=== PATIENT | female | born 1935 | race Caucasian/White ===

== ENCOUNTER 2018-06-26 14:25 | Inpatient (IN) ==
[2018-06-26] MEDS ORDERED: 0.9 % Sodium Chloride 1,000 ML IVC ONE (15:59)
--- NOTE | 2018-06-26 16:03 | Emergency Department Note ---
Disposition Clinical Impression: ADRIENNE (acute kidney injury), Influenza A Failure to thrive Qualifiers: Failure to thrive age range: in adult Qualified Code(s): R62.7 - Adult failure to thrive Disposition: Admitted As Inpatient Condition: Fair Forms: ED Satisfaction Letter, Work/School Release Time of Disposition: 17:28 General Adult HPI - General Chief complaint: ED General Medical Stated complaint: FLu like symptoms Time Seen by Provider: 06/26/18 15:52 Source: patient Mode of arrival: ambulatory Limitations: no limitations Nursing Notes Reviewed: Yes Vital Signs Reviewed: Yes - History of Present Illness HPI Narrative: Patient is an 82-year-old female that presents emergency Department with reports of influenza A. Patient states that she has not been feeling well for appr oximately 4-5 days. Patient states that she has not been able to eat anything over this time. Patient states that she has had small amounts of oral fluid intake. Patient states that she just feels weak all over. Patient states she has had cough, congestion and shortness of breath. Patient also reports that she was having chest pain in her bilateral lower ribs. Patient states that is made worse when she coughs. Patient also reports that she is had a fever at home however she is not checked her temperature. Patient was seen by her primary care provider Dr. Marquez diagnosed with influenza and sent her here to the emergency department for IV fluids and further evaluation. Pain Scale: 7 - Related Data Home Medications Medication Instructions Recorded Confirmed ALPRAZolam [Xanax 0.5 MG Tablet] 0.5 mg PO HS #0 04/18/15 07/04/17 Donepezil [Aricept] 5 mg PO HS #0 04/18/15 07/04/17 Losartan/HCTZ [Hyzaar 50-12.5 1 tab PO DAILY 04/18/15 07/04/17 Tablet] Montelukast [Singulair] 10 mg PO DAILY #0 04/18/15 07/04/17 Omeprazole [PriLOSEC] 20 mg PO BID #0 04/18/15 07/04/17 Acetaminophen [Tylenol] 325 mg PO Q6HR PRN 11/30/15 07/04/17 Cholecalciferol (D-3) [Vitamin D] 2,000 unit PO DAILY 07/04/17 07/04/17 Previous Rx's Medication Instructions Recorded Albuterol Sulfate [Albuterol 1 puff IH Q4HR PRN #1 hfa.aer.ad 11/08/15 Inhaler] Ibuprofen [Motrin] 600 mg PO Q6HR PRN #60 tab 07/04/17 Allergies Allergy/AdvReac Type Severity Reaction Status Date / Time TAVO Inhibitors Allergy Itching Verified 07/04/17 09:42 Penicillins Allergy Itching Verified 07/04/17 09:42 sulfamethoxazole Allergy Hives Verified 06/28/17 15:49 [From Bactrim] trimethoprim [From Bactrim] Allergy Hives Verified 06/28/17 15:49 All systems ED: reviewed and negative except as stated. Constitutional: Reports: fever, weakness Cardiovascular: Reports: chest pain Respiratory: Reports: cough, dyspnea. Denies: sputum production Gastrointestinal: Reports: nausea. 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 Absent: respiratory distress, wheezes - Cardiovascular Cardiovascular exam: Present: regular rate, normal rhythm, normal heart sounds, +S1, +S2 - Abdominal Exam Abdominal exam: Present: soft, Non-Tender, normal bowel sounds - Neurological Exam Neurological exam: Present: alert, oriented X3 - Psychiatric Psychiatric exam: Present: normal affect, normal mood - Skin Skin exam: Present: warm, dry, intact Course Vital Signs Temperature 97.4 F L 06/26/18 14:36 Pulse Rate 87 06/26/18 14:36 Respiratory Rate 20 06/26/18 14:36 Blood Pressure 94/65 06/26/18 14:36 O2 Sat by Pulse Oximetry 93 06/26/18 14:36 Temperature 97.4 F L 06/26/18 15:46 Pulse Rate 71 06/26/18 17:12 Respiratory Rate 20 06/26/18 17:12 Blood Pressure 126/80 06/26/18 17:12 O2 Sat by Pulse Oximetry 95 06/26/18 17:12 Oxygen Delivery Oxygen Delivery Room Air Medical Decision Making - MDM Narrative Medical decision making narrative: Due the patient presenting to the emergency department with reports of influenza as well as chest pain and shortness of breath we will obtain basic laboratory testing as well as chest x-ray and EKG. Patient will also receive IV fluids. Due to the patient having positive influenza a at outside facility and having acute kidney injury here in the emergency department and not tolerating by mouth intake we will admit the patient for further evaluation and management. The patient's creatinine was 1.54 which is elevated from the patient's baseline. The patient has a low white blood cell count of 4.2. Otherwise remainder of her laboratory testing is relatively unremarkable. Patient was given IV fluids. I called and spoke with the and admitting hospitalist - Medical Records Medical records reviewed: Yes I reviewed the patient's medical records. - Lab Data Lab results reviewed: Yes I reviewed the patient's lab results. Result diagrams: 06/26/18 16:05 06/26/18 16:05 Lab Results 06/26/18 06/26/18 Range/Units 16:05 16:05 WBC 4.2 L (4.3-11.1) K/mcL RBC 4.84 (3.82-4.97) M/mcL Hgb 15.6 H (11.5-15.4) g/dL Hct 46.5 H (35.3-44.9) % MCV 96.1 (83.0-100.0) fL MCH 32.2 (28.0-33.3) pg MCHC 33.5 (31.6-35.5) g/dL RDW 13.3 (11.5-14.5) % Plt Count 195 (140-400) K/mcL MPV 9.7 (9.4-12.4) fL Immature Gran % 0.2 (0-4) % Seg Neutrophils % 60.7 % Lymphocytes % 20.6 % Monocytes % 17.3 % Eosinophils % 0.5 % Basophils % 0.7 % Neutrophils # 2.6 (1.6-8.9) K/mcL Lymphocytes # 0.9 (0.6-4.6) K/mcL Monocytes # 0.7 (0.0-1.3) K/mcL Eosinophils # 0.0 (0.0-0.6) K/mcL Basophils # 0.0 (0.0-0.2) K/mcL Sodium 135 L (136-145) mEq/L Potassium 4.1 (3.5-5.1) mEq/L Chloride 101 (98-107) mEq/L Carbon Dioxide 18 L (23-29) mEq/L BUN 29 H (8-23) mg/dL Creatinine 1.54 H (0.60-1.20) mg/dL Est GFR ( Amer) 39 L (> 60) Est GFR (Non-Af Amer) 32 L (> 60) BUN/Creatinine Ratio 19 (6-26) Glucose 86 (70-105) mg/dL Calculated Osmolality 285 (280-300) Calcium 9.5 (8.6-10.3) mg/dL Troponin I < 0.03 (< 0.04) ng/mL - Radiology Data Radiology results reviewed: Yes I reviewed the patient's radiology results. Chest X-Ray 06/26/18 15:56 IMPRESSION: No acute cardiopulmonary disease. D/ / Betty Hopper MD / Betty Hopper MD Interpreting Provider: Betty Hopper MD - EKG Data EKG #1 EKG attestation: Yes I reviewed and interpreted this EKG. EKG results narrative: EKG shows a sinus rhythm at a rate of 72 beats minute, OH interval 154, QRS duration of 87, QTc of 447. There is evidence of T-wave inversion on aVL. As well as T-wave flattening in V2. This is compared to previous EKG on 01/30/17.
--- NOTE | 2018-06-26 16:09 | Emergency Department Note ---
Disposition Clinical Impression: Failure to thrive Qualifiers: Failure to thrive age range: in adult Qualified Code(s): R62.7 - Adult failure to thrive Disposition: Still a Patient Forms: ED Satisfaction Letter, Work/School Release General Adult HPI - General Chief complaint: ED General Medical Stated complaint: FLu like symptoms Time Seen by Provider: 06/26/18 15:52 Source: patient Mode of arrival: ambulatory Limitations: no limitations Nursing Notes Reviewed: Yes Vital Signs Reviewed: Yes - History of Present Illness HPI Narrative: ED ATTESTATION NOTE: I examined this patient and my medical decision-making was reviewed with the Resident Physician/SALVAGER/PA/Student. I have personally performed a face to face evaluation on this patient & I agree with the documented findings, disposition and treatment plan as described except to the extent set forth below. Patient was seen with emergency medicine resident Dr. David Petty please see copy of his note for details of this encounter Briefly: A 52-year-old female diagnosed with influenza today for 5 days of symptoms not eating or drinking referred by her primary care provider to the further evaluation patient appears ill but nontoxic mucosa patient get IV rehydration screening labs and chest x-ray including EKG. Admission anticipated. Disposition pending. Pain Scale: 7 - Related Data Home Medications Medication Instructions Recorded Confirmed ALPRAZolam [Xanax 0.5 MG Tablet] 0.5 mg PO HS #0 04/18/15 07/04/17 Donepezil [Aricept] 5 mg PO HS #0 04/18/15 07/04/17 Losartan/HCTZ [Hyzaar 50-12.5 1 tab PO DAILY 04/18/15 07/04/17 Tablet] Montelukast [Singulair] 10 mg PO DAILY #0 04/18/15 07/04/17 Omeprazole [PriLOSEC] 20 mg PO BID #0 04/18/15 07/04/17 Acetaminophen [Tylenol] 325 mg PO Q6HR PRN 11/30/15 07/04/17 Cholecalciferol (D-3) [Vitamin D] 2,000 unit PO DAILY 07/04/17 07/04/17 Previous Rx's Medication Instructions Recorded Albuterol Sulfate [Albuterol 1 puff IH Q4HR PRN #1 hfa.aer.ad 11/08/15 Inhaler] Ibuprofen [Motrin] 600 mg PO Q6HR PRN #60 tab 07/04/17 Allergies Allergy/AdvReac Type Severity Reaction Status Date / Time TAVO Inhibitors Allergy Itching Verified 07/04/17 09:42 Penicillins Allergy Itching Verified 07/04/17 09:42 sulfamethoxazole Allergy Hives Verified 06/28/17 15:49 [From Bactrim] trimethoprim [From Bactrim] Allergy Hives Verified 06/28/17 15:49 Constitutional: Reports: fever, weakness Cardiovascular: Reports: chest pain Respiratory: Reports: cough, dyspnea. Denies: sputum production Gastrointestinal: Reports: nausea. 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 - Social History Smoking Status: Never smoker Smokeless Tobacco Status: No Alcohol use: Reports: none Drug use: Reports: none Physical Exam - General Limitations: no limitations General appearance: alert, in no apparent distress Course Vital Signs Temperature 97.4 F L 06/26/18 14:36 Pulse Rate 87 06/26/18 14:36 Respiratory Rate 20 06/26/18 14:36 Blood Pressure 94/65 06/26/18 14:36 O2 Sat by Pulse Oximetry 93 06/26/18 14:36 Temperature 97.4 F L 06/26/18 15:46 Pulse Rate 73 06/26/18 15:51 Respiratory Rate 20 06/26/18 15:51 Blood Pressure 163/83 06/26/18 15:51 O2 Sat by Pulse Oximetry 96 06/26/18 15:51 Oxygen Delivery Oxygen Delivery Room Air
[2018-06-26 16:20] LABS: Basophils % 0.7 %; Eosinophils % 0.5 %; Hematocrit 46.5 % (35.3-44.9); Hemoglobin 15.6 g/dL (11.5-15.4); Immature Granulocytes % 0.2 % (0-4); Lymphocytes # 0.9 K/mcL (0.6-4.6); Lymphocytes % 20.6 %; Mean Corpuscular HGB Conc 33.5 g/dL (31.6-35.5); Mean Corpuscular Hemoglobin 32.2 pg (28.0-33.3); Mean Corpuscular Volume 96.1 fL (83.0-100.0); Mean Platelet Volume 9.7 fL (9.4-12.4); Monocytes # 0.7 K/mcL (0.0-1.3); Monocytes % 17.3 %; Neutrophils # 2.6 K/mcL (1.6-8.9); Platelet Count 195 K/mcL (140-400); Red Blood Count 4.84 M/mcL (3.82-4.97); Red Cell Distribution Width 13.3 % (11.5-14.5); Segmented Neutrophils % 60.7 %
[2018-06-26 16:54] LABS: BUN/Creatinine Ratio 19 (6-26); Blood Urea Nitrogen 29 mg/dL (8-23); Calcium 9.5 mg/dL (8.6-10.3); Carbon Dioxide 18 mEq/L (23-29); Chloride 101 mEq/L (98-107); Glucose 86 mg/dL (70-105); Osmolality,Calculated 285 (280-300); Potassium 4.1 mEq/L (3.5-5.1); Sodium 135 mEq/L (136-145); Troponin I < 0.03 ng/mL (< 0.04); eGFR For Non-African Americans 32 (> 60)
[2018-06-26] MEDS ORDERED: Ondansetron 4 MG/2 ML VIAL IVP PRN (18:26)
--- NOTE | 2018-06-26 18:34 | Internal Med History&Physical ---
Date of Encounter: 06/26/18 Time of Encounter: 18:10 Internal Medicine - H&P: HPI Admitted From: Home Plans for Post Hospital Care: Home History of present illness: Ms. Demarco is a 82 year old female with a possible medical history of hypertension, asthma who has had body aches, cough, upper retrosternal chest pain with cough and breathing, lightheadedness, occasional diarrhea for the last 4 days. She went to her doctor's office and had no swab which diagnosed her with influenza A. She was sent by her doctor here for IV hydration since she was not eating and drinking well at home. In the ER her labs were consistent with acute renal injury and some dehydration. Since she got some fluids she is feeling a little better. The chest x-ray did not show pneumonia. She has occasional phlegm. She is a nonsmoker. Past Med Surg Social Fam HX - Past Medical History Medical history: COPD, dementia, hyperlipidemia, hypertension, kidney stones Additional medical history: DDD. cervical ca Psychiatric history: anxiety, depression - Past Surgical History Surgical History: other Additional surgical history: Bladder tuck. Left Ankle. Right Nephrostomy- placed and removed - Social History Smoking Status: Never smoker Smokeless Tobacco Status: No Alcohol use: none Drug use: none - Family History Mother Family Member Ethnicity: Non- Living Status: Hx Family Cardiac Disorders: Yes Hx Family Respiratory Disorders: No Hx Family Cancer: No Hx Family GI Disorders: No Hx Family Endocrine Disorder: Yes (dm) Hx Family Neuromuscular Disorders: No Hx Family Neurologic Disorders: No Hx Family HEENT Disorders: No Hx Family Autoimmune Disorders: No Brother Hx Family Cardiac Disorders: Yes Internal Medicine - H&P: Meds Donepezil [Aricept] 5 mg PO HS #0 04/18/15 [History] Omeprazole [PriLOSEC] 20 mg PO DAILY #0 04/18/15 [History] Albuterol Sulfate [Albuterol Inhaler] 1 puff IH Q4HR PRN #1 hfa.aer.ad 11/08/15 [Rx] Acetaminophen [Tylenol] 500 mg PO Q6HR PRN 06/26/18 [History] Ergocalciferol (VITAMIN D2) [Vitamin D2] 50,000 unit PO QWEEK 06/26/18 [History] Escitalopram [Lexapro] 10 mg PO DAILY 06/26/18 [History] Gabapentin [Neurontin] 300 mg PO HS 06/26/18 [History] Lisinopril [Zestril] 5 mg PO DAILY 06/26/18 [History] Oxybutynin Chloride [Ditropan Xl] 5 mg PO DAILY 06/26/18 [History] Quetiapine Fumarate [SEROquel] 25 mg PO HS 06/26/18 [History] clonazePAM [Clonazepam] 0.5 mg PO DAILY 06/26/18 [History] Allergy/AdvReac Type Severity Reaction Status Date / Time TAVO Inhibitors Allergy Itching Verified 07/04/17 09:42 Penicillins Allergy Itching Verified 07/04/17 09:42 sulfamethoxazole Allergy Hives Verified 06/28/17 15:49 [From Bactrim] trimethoprim [From Bactrim] Allergy Hives Verified 06/28/17 15:49 All Systems PM: A 10-system review of systems was performed and is negative for pertinent findings except as documented above in the HPI. - Constitutional Vitals: Temp Pulse Resp BP Pulse Ox 97.4 F L 71 20 126/80 95 06/26/18 15:46 06/26/18 17:12 06/26/18 17:12 06/26/18 17:12 06/26/18 17:12 General appearance: Present: mild distress, A&O X 3, answers questions appropriately Exam: Lying in bed. - Head Head exam: Present: atraumatic, normocephalic - Eye Eye exam: Present: PERRL, conjuntiva pink, sclera anicteric Pupils: Present: PERRL - Neck Neck exam general surgery: Present: supple, trachea midline - Respiratory Respiratory exam: Present: wheezes. Absent: accessory muscle use, rales, rhonchi - Cardiovascular Cardiovascular exam: Present: RRR, +S1, +S2. Absent: diastolic murmur, gallop, rubs, systolic murmur - GI/Abdominal GI/Abdominal exam: Present: normal bowel sounds, soft, no peritoneal signs. Absent: distended, tenderness - Extremities Exam Extremities exam: Present: warm, radial pulses palpable and symmetrical. Absent: cyanotic, pedal edema - Neurological Exam Neurological exam: Present: CN II-XII intact, oriented X3, no focal deficits. Absent: pronater drift, facial droop, speech deficit - Psychiatric Psychiatric exam: Present: normal mood - Skin Skin exam: Present: dry, intact Internal Med - H&P Results - Labs CBC & Chem 7: 06/26/18 16:05 06/26/18 16:05 Labs: Short CBC 06/26/18 Range/Units 16:05 WBC 4.2 L (4.3-11.1) K/mcL Hgb 15.6 H (11.5-15.4) g/dL Hct 46.5 H (35.3-44.9) % Plt Count 195 (140-400) K/mcL Neutrophils # 2.6 (1.6-8.9) K/mcL BMP 06/26/18 16:05 Sodium 135 L Potassium 4.1 Chloride 101 Carbon Dioxide 18 L BUN 29 H Creatinine 1.54 H Glucose 86 Calcium 9.5 Cardiac Enzymes 06/26/18 Range/Units 16:05 Troponin I < 0.03 (< 0.04) ng/mL - Impressions ITS Impressions Chest X-Ray 06/26/18 15:56 IMPRESSION: No acute cardiopulmonary disease. D/ / Betty Hopper MD / Betty Hopper MD Interpreting Provider: Betty Hopper MD - Assessment and Plan (1) Influenza A Current Visit: Yes Status: Acute Assessment and plan: The patient is post the window for starting Tamiflu. Will hydrate patient. Will institute Zofran when necessary for nausea. We will give supportive care with cough syrup and acetaminophen. (2) ADRIENNE (acute kidney injury) Current Visit: Yes Status: Acute Assessment and plan: Will hydrate gently. Will follow renal function by labs. Hold lisinopril at this time. (3) HTN (hypertension) Current Visit: No Status: Chronic Assessment and plan: Will monitor blood pressure. Lisinopril is held kidney function improves. (4) Asthma Current Visit: Yes Status: Acute Assessment and plan: Will give neb treatments with albuterol. Oxygen if needed. Qualifiers: Asthma severity: moderate Qualified Code(s): J45.909 - Unspecified asthma, uncomplicated - Time Spent With Patient Total time spent is greater than 50% in coordination of care (as documented) at patient's floor/unit and/or counseling patient: 25 - 35 minutes
[2018-06-26] MEDS: 0.9 % Sodium Chloride 1,000 ML IVC SCH (18:53)
[2018-06-26] MEDS ORDERED: Albuterol 2.5 MG/3 ML NEBULIZER ONE (18:56)
[2018-06-26] MEDS: Albuterol 2.5 MG/3 ML NEBULIZER IH SCH ×2 (18:56→22:43)
[2018-06-26] MEDS: Gabapentin 300 MG CAPSULE PO SCH (21:42)
[2018-06-27 03:26] LABS: Basophils % 0.4 %; Eosinophils % 0.8 %; Hematocrit 40.5 % (35.3-44.9); Lymphocytes # 0.8 K/mcL (0.6-4.6); Lymphocytes % 29.2 %; Mean Corpuscular HGB Conc 34.1 g/dL (31.6-35.5); Mean Corpuscular Hemoglobin 32.7 pg (28.0-33.3); Mean Platelet Volume 9.5 fL (9.4-12.4); Monocytes # 0.5 K/mcL (0.0-1.3); Monocytes % 20.5 %; Neutrophils # 1.3 K/mcL (1.6-8.9); Platelet Count 165 K/mcL (140-400); Red Blood Count 4.22 M/mcL (3.82-4.97); Red Cell Distribution Width 13.3 % (11.5-14.5); Segmented Neutrophils % 49.1 %
[2018-06-27 03:39] LABS: Hemoglobin 13.8 g/dL (11.5-15.4)
[2018-06-27 03:43] LABS: Calcium 8.5 mg/dL (8.6-10.3); Potassium 3.3 mEq/L (3.5-5.1)
[2018-06-27] MEDS: Albuterol 2.5 MG/3 ML NEBULIZER IH SCH ×4 (04:17→22:41)
[2018-06-27 05:23] LABS: Platelet Estimate Slight Decrease (Normal)
[2018-06-27] MEDS: Cholecalciferol (D-3) 1,000 UNIT TABLET PO SCH (08:18)
[2018-06-27] MEDS: clonazePAM 0.5 MG TABLET PO SCH (08:18)
[2018-06-27] MEDS: 0.9 % Sodium Chloride 1,000 ML IVC SCH ×2 (09:23→22:12)
--- NOTE | 2018-06-27 10:14 | Internal Med Progress Note ---
<StokesAmira - Last Filed: 06/27/18 10:09> Hospitalist Progress Note - Encounter Date of Encounter: 06/27/18 Time of Encounter: 08:40 - Subjective Interval History: Ms. Demarco is a 82 y/o female with a past medical history of hypertension, asthma who has had body aches, cough, upper retrosternal chest pain with cough and breathing, lightheadedness, occasional diarrhea for the last 4 days and was admitted to the ED for ADRIENNE 2/2 to dehydration from influenza A. Today, patient states that she has a headache this morning. She normally takes Tylenol which helps it. She is not feeling nauseous but is not hungry. She is currently only eating ice. She is still coughing and it is hard bring up the mucous. - Exam Vitals: Temp Pulse Resp BP Pulse Ox 98.5 F 100 17 104/69 98 06/27/18 07:49 06/27/18 07:49 06/27/18 09:41 06/27/18 07:49 06/27/18 09:41 Exam: Constitutional: Alert, in no acute distress Head: Normocephalic, atraumatic Heart: Normal, regular rate and rhythm, no murmurs Lungs: 1:2 prolonged expiratory phase, wheezing, on RA without acute resp distress Abdomen: Soft, nondistended, nontender, no guarding or rigidity. Extremities: No edema, No clubbing, radial pulse +2/4, capillary refill <2sec. Skin: Skin warm and dry, no lesions, no rashes, no jaundice Neurologic: Cranial nerves II through XII grossly intact, Psych: Cooperative with exam, cognitive function intact, speech clear, - Assessment and Plan (1) ADRIENNE (acute kidney injury) Current Visit: Yes Status: Acute Assessment and Plan: ADRIENNE resolved. Patient is still not eating or drinking currently therefore will continue fluids. Plan: - NS 75ml/hr - continue to hold lisinpril - avoid nephrotoxic agents - diet: regular - dispo: most likely tomorrow if patient is able to maintain fluid hydraiton. (2) Influenza A Current Visit: Yes Status: Acute Assessment and Plan: Patient was not diagnosed until 4 days after symptoms. Does not qualify for Tamiflu. Currently on RA but wheezing present. Will obtain Resp panel. Currently not on antibiotics as only found source so far is influenza. Leukopenia likely 2/2 to influenza. CXR did not show pneumonia. Plan: - resp panel pending - no tamiflu needed - Mucinex DM - continue supportive care (3) HTN (hypertension) Current Visit: No Status: Chronic Assessment and Plan: Well controlled currently. Holding Lisinopril for ADRIENNE. ADRIENNE resolved. Continue to hold as blood pressure well controlled. (4) Asthma Current Visit: Yes Status: Acute Assessment and Plan: Albuterol Q6H nati. (5) Hypokalemia Current Visit: Yes Status: Acute Assessment and Plan: K= 3.3, likely due to albuterol treatments. Will replace with KCl 40meq once recheck in the AM. (6) Dehydration Current Visit: Yes Status: Acute Assessment and Plan: See plan above. Patient is only eating ice chips currently. Will continue fluids. DVT Prophylaxis: IPCDs - Time Spent with Patient Total time spent is greater than 50% in coordination of care (as documented) at patient's floor/unit and/or counseling patient: Internal Medicine: Result - Labs CBC & Chem 7: 06/27/18 02:37 06/27/18 02:37 Labs: Short CBC 06/26/18 06/27/18 Range/Units 16:05 02:37 WBC 4.2 L 2.6 L (4.3-11.1) K/mcL Hgb 15.6 H 13.8 D (11.5-15.4) g/dL Hct 46.5 H 40.5 (35.3-44.9) % Plt Count 195 165 (140-400) K/mcL Neutrophils # 2.6 1.3 L (1.6-8.9) K/mcL BMP 06/26/18 06/27/18 16:05 02:37 Sodium 135 L 138 Potassium 4.1 3.3 L Chloride 101 106 Carbon Dioxide 18 L 19 L BUN 29 H 24 H Creatinine 1.54 H 1.15 Glucose 86 77 Calcium 9.5 8.5 L Cardiac Enzymes 06/26/18 Range/Units 16:05 Troponin I < 0.03 (< 0.04) ng/mL - Impressions Impressions Chest X-Ray 06/26/18 15:56 IMPRESSION: No acute cardiopulmonary disease. D/ / Betty Hopper MD / Betty Hopper MD Interpreting Provider: Betty Hopper MD Consult Discharge Plan - Plan Referrals: Tyler Mraquez MD [Primary Care Provider] - <Shiv Bolden - Last Filed: 06/27/18 11:00> Hospitalist Progress Note - Encounter Date of Encounter: 06/27/18 - Exam Vitals: Temp Pulse Resp BP Pulse Ox 98.5 F 100 17 104/69 98 06/27/18 07:49 06/27/18 07:49 06/27/18 09:41 06/27/18 07:49 06/27/18 09:41 - Assessment and Plan (1) ADRIENNE (acute kidney injury) Current Visit: Yes Status: Acute (2) HTN (hypertension) Current Visit: No Status: Chronic (3) Influenza A Current Visit: Yes Status: Acute (4) Asthma Current Visit: Yes Status: Acute (5) Hypokalemia Current Visit: Yes Status: Acute (6) Dehydration Current Visit: Yes Status: Acute - Time Spent with Patient Total time spent is greater than 50% in coordination of care (as documented) at patient's floor/unit and/or counseling patient: Internal Medicine: Result - Labs CBC & Chem 7: 06/27/18 02:37 06/27/18 02:37 Labs: Short CBC 06/26/18 06/27/18 Range/Units 16:05 02:37 WBC 4.2 L 2.6 L (4.3-11.1) K/mcL Hgb 15.6 H 13.8 D (11.5-15.4) g/dL Hct 46.5 H 40.5 (35.3-44.9) % Plt Count 195 165 (140-400) K/mcL Neutrophils # 2.6 1.3 L (1.6-8.9) K/mcL BMP 06/26/18 06/27/18 16:05 02:37 Sodium 135 L 138 Potassium 4.1 3.3 L Chloride 101 106 Carbon Dioxide 18 L 19 L BUN 29 H 24 H Creatinine 1.54 H 1.15 Glucose 86 77 Calcium 9.5 8.5 L Cardiac Enzymes 06/26/18 Range/Units 16:05 Troponin I < 0.03 (< 0.04) ng/mL - Impressions Impressions Chest X-Ray 06/26/18 15:56 IMPRESSION: No acute cardiopulmonary disease. D/ / Betty Hopper MD / Betty Hopper MD Interpreting Provider: Betty Hopper MD - Attending Attestation I examined this patient and my medical decision-making was reviewed with the Resident Physician Dr. Stokes. I agree with the documented findings, disposition and treatment plan as described except to the extent set forth below. Ms. Demarco is a 82 year old female with a known past medical history of hypertension, COPD, hyperlipidemia and renal calculi pt presented to ER with flu like symptoms, generalized body aches, cough with expectoration. Her influenza A came back positive. She denied any CP. Pt still feels weak and lethargic and PO intake is not better. Gen: A, A, O x 3 Chest: Diminished BS b/l , no crackles, No rales Heart; S1S2+ RRR a/p 1. Acute influenza A positive inf 2. Acute purulent bronchitis 3. ADRIENNE due to dehydration Since her symptoms are mote than 4 days, no need of Tamiflu continue symptomatic and supportive care IV hydration since she does have purulent bronchitis will start her on prophylactic antibiotic levofloxacin ___ <Amira Stokes - Last Filed: 06/27/18 10:09> (3) HTN (hypertension) Qualifiers: Hypertension type: essential hypertension Qualified Code(s): I10 - Essential (primary) hypertension (4) Asthma Qualifiers: Asthma severity: moderate Qualified Code(s): J45.909 - Unspecified asthma, uncomplicated <Shiv Bolden - Last Filed: 06/27/18 11:00> (2) HTN (hypertension) Qualifiers: Hypertension type: essential hypertension Qualified Code(s): I10 - Essential (primary) hypertension (4) Asthma Qualifiers: Asthma severity: moderate Qualified Code(s): J45.909 - Unspecified asthma, uncomplicated
[2018-06-27] MEDS: levoFLOXacin 750 MG TABLET PO SCH (11:41)
[2018-06-27 12:53] LABS: Adenovirus Not Detected (Not Detect); Bordetella Pertussis Not Detected (Not Detect); Chlamydophila pneumoniae Not Detected (Not Detect); Coronavirus 229E Not Detected (Not Detect); Coronavirus HKU1 Not Detected (Not Detect); Coronavirus NL63 Not Detected (Not Detect); Coronavirus OC43 Not Detected (Not Detect); Human Metapneumovirus Not Detected (Not Detect); Human Rhinovirus/Enterovirus Not Detected (Not Detect); Influenza A Subtype 2009 H1 Not Detected (Not Detect); Influenza A Untypeable Not Detected (Not Detect); Influenza B Not Detected (Not Detect); Mycoplasma pneumoniae Not Detected (Not Detect); Parainfluenza Virus 1 Not Detected (Not Detect); Parainfluenza Virus 2 Not Detected (Not Detect); Parainfluenza Virus 3 Not Detected (Not Detect); Parainfluenza Virus 4 Not Detected (Not Detect); Respiratory Syncytial Virus Not Detected (Not Detect)
[2018-06-27] MEDS: Gabapentin 300 MG CAPSULE PO SCH (21:07)
[2018-06-28] MEDS: Albuterol 2.5 MG/3 ML NEBULIZER IH SCH ×4 (03:58→22:21)
[2018-06-28 06:57] LABS: Mean Corpuscular Volume 99.5 fL (83.0-100.0)
[2018-06-28 06:58] LABS: Hematocrit 39.6 % (35.3-44.9); Hemoglobin 12.9 g/dL (11.5-15.4); Mean Corpuscular HGB Conc 32.6 g/dL (31.6-35.5); Mean Corpuscular Hemoglobin 32.4 pg (28.0-33.3); Mean Platelet Volume 9.3 fL (9.4-12.4); Platelet Count 147 K/mcL (140-400); Red Blood Count 3.98 M/mcL (3.82-4.97); Red Cell Distribution Width 13.5 % (11.5-14.5)
[2018-06-28 07:22] LABS: BUN/Creatinine Ratio 16 (6-26); Blood Urea Nitrogen 15 mg/dL (8-23); Calcium 8.4 mg/dL (8.6-10.3); Carbon Dioxide 19 mEq/L (23-29); Chloride 111 mEq/L (98-107); Glucose 77 mg/dL (70-105); Magnesium 1.6 mg/dL (1.6-2.6); Osmolality,Calculated 286 (280-300); Potassium 3.8 mEq/L (3.5-5.1); Sodium 138 mEq/L (136-145); eGFR For Non-African Americans 56 (> 60)
[2018-06-28] MEDS: clonazePAM 0.5 MG TABLET PO SCH (09:00)
[2018-06-28] MEDS: Cholecalciferol (D-3) 1,000 UNIT TABLET PO SCH (09:00)
[2018-06-28] MEDS: levoFLOXacin 750 MG TABLET PO SCH (09:00)
--- NOTE | 2018-06-28 11:25 | Internal Med Progress Note ---
Hospitalist Progress Note - Encounter Date of Encounter: 06/28/18 Time of Encounter: 09:26 - Subjective Interval History: Patient seen and examined this morning at bedside. No overnight acute events. Appears significantly short of breath with minimal exertion. She did have some improvement in her breathing compared to when she came in. Denies any chest pain. Has cough. Denies any abdominal pain, bowel or bladder complaints. Afebrile overnight. - Exam Vitals: Temp Pulse Resp BP Pulse Ox 97.6 F 82 18 112/68 95 06/28/18 11:17 06/28/18 11:17 06/28/18 11:17 06/28/18 11:17 06/28/18 11:17 Exam: General: In mild respiratory distress. Respiratory exam: Diffuse b/l wheezing, mild accessory muscle use Cardiovascular exam: RRR, +S1, +S2. no murmur, gallop, rubs. GI/Abdominal exam: Non-tender, Non-distended, normal bowel sounds, soft, no peritoneal signs. Extremities exam: full ROM, no pedal edema, no calf tenderness Neurological exam: CN II-XII intact, AO X3, no focal deficits. Skin exam: No skin rash - Assessment and Plan (1) ADRIENNE (acute kidney injury) Current Visit: Yes Status: Acute (2) HTN (hypertension) Current Visit: No Status: Chronic (3) Influenza A Current Visit: Yes Status: Acute (4) Asthma Current Visit: Yes Status: Acute (5) Hypokalemia Current Visit: Yes Status: Acute (6) Dehydration Current Visit: Yes Status: Acute - Summary of Assessment and Plan Summary of Assessment and Plan: Influenza A - Patient with high risk being elderly and history of asthma. Still with significant shortness of breath. Will start tamiflu - Will also start steroid course given h/o asthma and wheezing on clinical exam. - c/w levaquin started for bronchitis. ADRIENNE - resolved. Will mild hyperchloremia. Will stop IVF - continue to hold lisinopril HTN - Lisinopril on hold - Monitor BP for now Hypokalemia - resolved - monitor for now Dvt ppx - EPCD - Time Spent with Patient Total time spent is greater than 50% in coordination of care (as documented) at patient's floor/unit and/or counseling patient: Internal Medicine: Result - Labs CBC & Chem 7: 06/28/18 05:44 06/28/18 05:44 Labs: Short CBC 06/28/18 Range/Units 05:44 WBC 1.9 L (4.3-11.1) K/mcL Hgb 12.9 (11.5-15.4) g/dL Hct 39.6 (35.3-44.9) % Plt Count 147 (140-400) K/mcL BMP 06/28/18 05:44 Sodium 138 Potassium 3.8 Chloride 111 H Carbon Dioxide 19 L BUN 15 Creatinine 0.96 Glucose 77 Calcium 8.4 L Consult Discharge Plan - Plan Referrals: Tyler Marquez MD [Primary Care Provider] - (2) HTN (hypertension) Qualifiers: Hypertension type: essential hypertension Qualified Code(s): I10 - Essential (primary) hypertension (4) Asthma Qualifiers: Asthma severity: moderate
[2018-06-28] MEDS: MethylPREDNISolone 40 MG/ML VIAL IVP SCH (14:18)
[2018-06-28] MEDS: Gabapentin 300 MG CAPSULE PO SCH (21:08)
[2018-06-29 03:46] LABS: Red Cell Distribution Width 13.6 % (11.5-14.5)
[2018-06-29 03:47] LABS: Hematocrit 39.8 % (35.3-44.9); Hemoglobin 13.3 g/dL (11.5-15.4); Mean Corpuscular HGB Conc 33.4 g/dL (31.6-35.5); Mean Corpuscular Hemoglobin 32.4 pg (28.0-33.3); Mean Corpuscular Volume 97.1 fL (83.0-100.0); Mean Platelet Volume 9.7 fL (9.4-12.4); Monocytes # 0.1 K/mcL (0.0-1.3); Platelet Count 171 K/mcL (140-400)
[2018-06-29 03:57] LABS: BUN/Creatinine Ratio 13 (6-26); Blood Urea Nitrogen 13 mg/dL (8-23); Calcium 9.3 mg/dL (8.6-10.3); Carbon Dioxide 22 mEq/L (23-29); Chloride 108 mEq/L (98-107); Glucose 141 mg/dL (70-105); Osmolality,Calculated 288 (280-300); Potassium 4.1 mEq/L (3.5-5.1); Sodium 138 mEq/L (136-145); eGFR For Non-African Americans 54 (> 60)
[2018-06-29] MEDS: Albuterol 2.5 MG/3 ML NEBULIZER IH SCH ×4 (04:22→21:36)
[2018-06-29 04:47] LABS: Lymphocytes # 0.3 K/mcL (0.6-4.6); Neutrophils # 1.4 K/mcL (1.6-8.9); Platelet Estimate Normal (Normal)
[2018-06-29] MEDS: Cholecalciferol (D-3) 1,000 UNIT TABLET PO SCH (08:59)
[2018-06-29] MEDS: clonazePAM 0.5 MG TABLET PO SCH (08:59)
[2018-06-29] MEDS: levoFLOXacin 750 MG TABLET PO SCH (08:59)
[2018-06-29] MEDS: MethylPREDNISolone 40 MG/ML VIAL IVP SCH (08:59)
--- NOTE | 2018-06-29 11:27 | Internal Med Progress Note ---
Hospitalist Progress Note - Encounter Date of Encounter: 06/29/18 Time of Encounter: 11:24 - Subjective Interval History: Patient seen and examined this morning at bedside. No acute overnight events. Still significantly short of breath at rest. Denies any chest pain. In good spirits. - Exam Vitals: Temp Pulse Resp BP Pulse Ox 97.3 F L 75 18 110/67 93 06/29/18 10:00 06/29/18 10:00 06/29/18 10:40 06/29/18 10:00 06/29/18 10:40 Exam: General: In mild respiratory distress. Respiratory exam: Diffuse b/l wheezing, mild accessory muscle use Cardiovascular exam: RRR, +S1, +S2. no murmur, gallop, rubs. GI/Abdominal exam: Non-tender, Non-distended, no peritoneal signs. Extremities exam: full ROM, no pedal edema, no calf tenderness Neurological exam: CN II-XII intact, AO X3, no focal deficits. Skin exam: No skin rash - Assessment and Plan (1) ADRIENNE (acute kidney injury) Current Visit: Yes Status: Acute (2) HTN (hypertension) Current Visit: No Status: Chronic (3) Influenza A Current Visit: Yes Status: Acute (4) Asthma Current Visit: Yes Status: Acute (5) Hypokalemia Current Visit: Yes Status: Acute (6) Dehydration Current Visit: Yes Status: Acute - Summary of Assessment and Plan Summary of Assessment and Plan: Influenza A - Patient with high risk being elderly and history of asthma. Still with significant shortness of breath. - c/w tamiflu - c/w steroid course given h/o asthma and influenza - c/w levaquin started for bronchitis. ADRIENNE - resolved. Will mild hyperchloremia. Will stop IVF - continue to hold lisinopril HTN - Lisinopril on hold - Monitor BP for now Hypokalemia - resolved - monitor for now Dvt ppx - EPCD OOB to chair - Time Spent with Patient Total time spent is greater than 50% in coordination of care (as documented) at patient's floor/unit and/or counseling patient: Internal Medicine: Result - Labs CBC & Chem 7: 06/29/18 01:55 06/29/18 01:55 Labs: Short CBC 06/29/18 Range/Units 01:55 WBC 1.9 L (4.3-11.1) K/mcL Hgb 13.3 (11.5-15.4) g/dL Hct 39.8 (35.3-44.9) % Plt Count 171 (140-400) K/mcL Neutrophils # 1.4 L (1.6-8.9) K/mcL [facility] 06/29/18 01:55 Sodium 138 Potassium 4.1 Chloride 108 H Carbon Dioxide 22 L BUN 13 Creatinine 0.99 Glucose 141 H Calcium 9.3 Consult Discharge Plan - Plan Referrals: Tyler Marquez MD [Primary Care Provider] - ____ (2) HTN (hypertension) Qualifiers: Hypertension type: essential hypertension Qualified Code(s): I10 - Essential (primary) hypertension (4) Asthma Qualifiers: Asthma severity: moderate
[2018-06-29] MEDS: Gabapentin 300 MG CAPSULE PO SCH (20:46)
[2018-06-29] MEDS ORDERED: Melatonin 3 MG TABLET PO PRN (23:06)
[2018-06-30 04:12] LABS: Basophils % 0.2 %; Hematocrit 36.7 % (35.3-44.9); Hemoglobin 12.3 g/dL (11.5-15.4); Immature Granulocytes % 0.3 % (0-4); Lymphocytes # 0.7 K/mcL (0.6-4.6); Lymphocytes % 10.5 %; Mean Corpuscular HGB Conc 33.5 g/dL (31.6-35.5); Mean Corpuscular Hemoglobin 32.8 pg (28.0-33.3); Mean Corpuscular Volume 97.9 fL (83.0-100.0); Monocytes # 0.5 K/mcL (0.0-1.3); Monocytes % 7.1 %; Neutrophils # 5.5 K/mcL (1.6-8.9); Platelet Count 164 K/mcL (140-400); Red Blood Count 3.75 M/mcL (3.82-4.97); Red Cell Distribution Width 13.7 % (11.5-14.5); Segmented Neutrophils % 81.9 %
[2018-06-30] MEDS: Albuterol 2.5 MG/3 ML NEBULIZER IH SCH ×5 (04:13→19:52)
[2018-06-30 04:30] LABS: Calcium 9.2 mg/dL (8.6-10.3); Potassium 3.9 mEq/L (3.5-5.1)
[2018-06-30] MEDS: clonazePAM 0.5 MG TABLET PO SCH (09:29)
[2018-06-30] MEDS: MethylPREDNISolone 40 MG/ML VIAL IVP SCH ×2 (09:30→17:50)
[2018-06-30] MEDS: Cholecalciferol (D-3) 1,000 UNIT TABLET PO SCH (09:30)
[2018-06-30] MEDS: levoFLOXacin 750 MG TABLET PO SCH (09:30)
--- NOTE | 2018-06-30 11:35 | Internal Med Progress Note ---
Hospitalist Progress Note - Encounter Date of Encounter: 06/30/18 Time of Encounter: 08:21 - Subjective Interval History: Patient seen and examined this morning at bedside. No acute overnight events. Still with cough and difficulty breathing at rest. Denies any fevers chills nausea vomiting. - Exam Vitals: Temp Pulse Resp BP Pulse Ox 98.3 F 60 18 111/49 96 06/30/18 07:23 06/30/18 07:23 06/30/18 10:07 06/30/18 07:23 06/30/18 10:07 Exam: General: In no distress Respiratory exam: Diffuse b/l wheezing, no accessory muscle use at rest Cardiovascular exam: RRR, +S1, +S2. no murmur, gallop, rubs. GI/Abdominal exam: Non-tender, Non-distended, no peritoneal signs. Extremities exam: full ROM, no pedal edema, no calf tenderness Neurological exam: CN II-XII intact, AO X3, no focal deficits. Skin exam: No skin rash - Assessment and Plan (1) ADRIENNE (acute kidney injury) Current Visit: Yes Status: Acute (2) HTN (hypertension) Current Visit: No Status: Chronic (3) Influenza A Current Visit: Yes Status: Acute (4) Asthma Current Visit: Yes Status: Acute (5) Hypokalemia Current Visit: Yes Status: Acute (6) Dehydration Current Visit: Yes Status: Acute - Summary of Assessment and Plan Summary of Assessment and Plan: Influenza A - Patient with high risk being elderly and history of asthma. Shortness of breath improving. - c/w tamiflu - c/w steroid course given h/o asthma and influenza. Will increase dose to 40 BID and increase schedule duonebs frequency. - STart singulair - c/w levaquin started for bronchitis. - Still significantly short of breath and unsafe to go home. Will get PT/OT evaluation ADRIENNE - resolved with IVF. - continue to hold lisinopril given BP stable. HTN - Lisinopril on hold - Monitor BP for now Hypokalemia - resolved - monitor for now Dvt ppx - EPCD OOB to chair. - Time Spent with Patient Total time spent is greater than 50% in coordination of care (as documented) at patient's floor/unit and/or counseling patient: Internal Medicine: Result - Labs CBC & Chem 7: 06/30/18 03:29 06/30/18 03:29 Labs: Short CBC 06/30/18 Range/Units 03:29 WBC 6.7 D (4.3-11.1) K/mcL Hgb 12.3 (11.5-15.4) g/dL Hct 36.7 (35.3-44.9) % Plt Count 164 (140-400) K/mcL Neutrophils # 5.5 (1.6-8.9) K/mcL BMP 06/30/18 03:29 Sodium 138 Potassium 3.9 Chloride 108 H Carbon Dioxide 24 BUN 19 Creatinine 1.17 Glucose 114 H Calcium 9.2 Consult Discharge Plan - Plan Referrals: Tyler Marquez MD [Primary Care Provider] - (2) HTN (hypertension) Qualifiers: Hypertension type: essential hypertension Qualified Code(s): I10 - Essential (primary) hypertension (4) Asthma Qualifiers: Asthma severity: moderate
[2018-06-30] MEDS: Gabapentin 300 MG CAPSULE PO SCH (20:37)
[2018-07-01] MEDS: Albuterol 2.5 MG/3 ML NEBULIZER IH SCH ×3 (00:42→08:05)
[2018-07-01] MEDS: MethylPREDNISolone 40 MG/ML VIAL IVP SCH ×2 (05:38→17:54)
[2018-07-01] MEDS: Cholecalciferol (D-3) 1,000 UNIT TABLET PO SCH (09:26)
[2018-07-01] MEDS: levoFLOXacin 750 MG TABLET PO SCH (09:26)
[2018-07-01] MEDS: clonazePAM 0.5 MG TABLET PO SCH (09:26)
[2018-07-01] MEDS: Oseltamivir Phosphate 30 MG CAPSULE PO SCH (09:27)
[2018-07-01] MEDS ORDERED: Albuterol 2.5 MG/3 ML NEBULIZER IH PRN (10:28)
--- NOTE | 2018-07-01 10:29 | Internal Med Progress Note ---
Hospitalist Progress Note - Encounter Date of Encounter: 07/01/18 Time of Encounter: 10:29 - Subjective Interval History: Patient seen and examined this morning at bedside. No acute overnight events. Breathing slightly better than yesterday. Needs significant walk test yesterday and got significantly short of breath and hypoxic around 5 minutes. Denies any chest pain abdominal pain bowel or bladder complaints. - Exam Vitals: Temp Pulse Resp BP Pulse Ox 98.1 F 70 17 144/65 95 07/01/18 07:34 07/01/18 07:34 07/01/18 08:06 07/01/18 07:34 07/01/18 08:06 Exam: General: In no distress Respiratory exam: Diffuse b/l wheezing. Improved air entry. no accessory muscle use at rest Cardiovascular exam: RRR, +S1, +S2. no murmur, gallop, rubs. GI/Abdominal exam: Non-tender, Non-distended, no peritoneal signs. Extremities exam: full ROM, no pedal edema, no calf tenderness Neurological exam: CN II-XII intact, AO X3, no focal deficits. Skin exam: No skin rash - Assessment and Plan (1) ADRIENNE (acute kidney injury) Current Visit: Yes Status: Acute (2) HTN (hypertension) Current Visit: No Status: Chronic (3) Influenza A Current Visit: Yes Status: Acute (4) Asthma Current Visit: Yes Status: Acute (5) Hypokalemia Current Visit: Yes Status: Acute (6) Dehydration Current Visit: Yes Status: Acute - Summary of Assessment and Plan Summary of Assessment and Plan: Influenza A - Patient with high risk being elderly and history of asthma. Shortness of breath improving, albiet gradually. - Still with significant wheezing. Steroid dose increased yesterday. - c/w tamiflu, steroid, singulair - Finished 5 day course of levaquin. - Still significantly short of breath and unsafe to go home. Will get PT/OT evaluation ADRIENNE - resolved with IVF. - continue to hold lisinopril given BP stable. HTN - Lisinopril on hold - Monitor BP for now Hypokalemia - resolved - monitor for now Dvt ppx - EPCD OOB to chair. Home health per PT/OT Hypoxic with ambulation yesterday. Will perform again today. Plan for DC tomorrow. - Time Spent with Patient Total time spent is greater than 50% in coordination of care (as documented) at patient's floor/unit and/or counseling patient: Internal Medicine: Result - Labs CBC & Chem 7: 06/30/18 03:29 06/30/18 03:29 Consult Discharge Plan - Plan Additional Instructions: Home Health has been set up through [facility]. They will contact you within 48 hours after D/C to set up a date and time to complete admission. If you need to contact them for any reason please call #[phone] or #. Referrals: Tyler Marquez MD [Primary Care Provider] - 07/04/18 10:00 am (2) HTN (hypertension) Qualifiers: Hypertension type: essential hypertension Qualified Code(s): I10 - Essential (primary) hypertension (4) Asthma Qualifiers: Asthma severity: moderate
[2018-07-01] MEDS: Ipratropium/Albuterol Neb 3 ML IH SCH ×3 (11:00→22:10)
[2018-07-01] MEDS: Gabapentin 300 MG CAPSULE PO SCH (20:59)
[2018-07-02] MEDS: Ipratropium/Albuterol Neb 3 ML IH SCH ×4 (03:52→21:40)
[2018-07-02] MEDS: MethylPREDNISolone 40 MG/ML VIAL IVP SCH ×2 (05:49→18:20)
[2018-07-02] MEDS: clonazePAM 0.5 MG TABLET PO SCH (09:03)
[2018-07-02] MEDS: Cholecalciferol (D-3) 1,000 UNIT TABLET PO SCH (09:03)
[2018-07-02] MEDS: Aspirin Enteric Coated 81 MG Tablet PO SCH (09:03)
[2018-07-02] MEDS: Oseltamivir Phosphate 30 MG CAPSULE PO SCH (09:03)
--- NOTE | 2018-07-02 15:20 | Internal Med Progress Note ---
<Abelardo Cerda - Last Filed: 07/02/18 15:17> Hospitalist Progress Note - Encounter Date of Encounter: 07/02/18 Time of Encounter: 11:00 - Subjective Interval History: Patient seen today. She is asleep in bed, somnolent. As per nurse and patient was more awake yesterday and with more energy. With effort she is able to sit up. She is following commands. Patient is not on oxygen at home and is requiring 2 L to stay above 88%. - Exam Vitals: Temp Pulse Resp BP Pulse Ox 97.7 F 64 16 106/60 92 07/02/18 15:11 07/02/18 15:11 07/02/18 15:11 07/02/18 15:11 07/02/18 15:11 Exam: General: drowsy, Cardiovascualr: Regular rate and rhythm with no murmur, absent gallops or rubs, absent pedal edema, radial pulses 2 out of 4 Lungs: Clear to auscultation bilaterally, not in respiratory distress Abdomen: Soft nontender, nondistended positive bowel sounds, absent hepatomegaly Skin: warm and dry, absent rash, absent open wounds and nodules MSK: absent clubbing, cyanosis, joints without swelling Neuro: Alert, oriented x3 drowsy Psych: drowsy, calm - Assessment and Plan (1) Acute respiratory failure with hypoxia Current Visit: Yes Status: Acute Assessment and Plan: Secondary to asthma exacerbation in setting of influenza Patient requiring 2 L oxygen supplementation without exertion. The plan was to call for Patient for oxygen however she is very drowsy and unable to stay awake. Continue oxygen supplementation at this time. (2) Asthma Current Visit: Yes Status: Acute Assessment and Plan: Improving. Continue oxygen supplementation, Solu-Medrol. When necessary nebulizer treatments. Started on Symbicort today. (3) Drowsy Current Visit: Yes Status: Acute Assessment and Plan: Unclear etiology of patient's drowsiness. We will hold gabapentin, Seroquel, Klonopin. Reevaluate tomorrow morning. (4) HTN (hypertension) Current Visit: Yes Status: Chronic Assessment and Plan: Control. Continue home medications. (5) Influenza A Current Visit: Yes Status: Acute Assessment and Plan: Patient completed Tamiflu course - Time Spent with Patient Total time spent is greater than 50% in coordination of care (as documented) at patient's floor/unit and/or counseling patient: Internal Medicine: Result - Labs CBC & Chem 7: 06/30/18 03:29 06/30/18 03:29 Consult Discharge Plan - Plan Additional Instructions: Home Health has been set up through [facility]. They will contact you within 48 hours after D/C to set up a date and time to complete admission. If you need to contact them for any reason please call #[phone] or #[phone]. Referrals: Tyler Marquez MD [Primary Care Provider] - 07/04/18 10:00 am <Karen Moseley - Last Filed: 07/02/18 16:13> Hospitalist Progress Note - Encounter Date of Encounter: 07/02/18 - Exam Vitals: Temp Pulse Resp BP Pulse Ox 97.7 F 64 16 106/60 94 07/02/18 15:11 07/02/18 15:11 07/02/18 15:44 07/02/18 15:44 07/02/18 15:44 - Assessment and Plan (1) ADRIENNE (acute kidney injury) Current Visit: Yes Status: Acute (2) HTN (hypertension) Current Visit: Yes Status: Chronic (3) Influenza A Current Visit: Yes Status: Acute (4) Asthma Current Visit: Yes Status: Acute (5) Hypokalemia Current Visit: Yes Status: Acute (6) Dehydration Current Visit: Yes Status: Acute - Time Spent with Patient Total time spent is greater than 50% in coordination of care (as documented) at patient's floor/unit and/or counseling patient: Internal Medicine: Result - Labs CBC & Chem 7: 06/30/18 03:29 06/30/18 03:29 - Attending Attestation I have seen and independently assessed this patient and I agree with plan as documented above Plan Acute hypoxic respiratory failure 2/2 asthma/ COPD exacerbation and influenza. Continue nebs, steroids and antibiotics. Repeat xray. Wean off oxygen as tolerated <Abelardo Cerdasienaevie - Last Filed: 07/02/18 15:17> (2) Asthma Qualifiers: Asthma severity: moderate Asthma persistence: unspecified Asthma complication type: with acute exacerbation Qualified Code(s): J45.901 - Unspecified asthma with (acute) exacerbation (4) HTN (hypertension) Qualifiers: Hypertension type: essential hypertension Qualified Code(s): I10 - Essential (primary) hypertension <Karen Moseley - Last Filed: 07/02/18 16:13> (2) HTN (hypertension) Qualifiers: Hypertension type: essential hypertension Qualified Code(s): I10 - Essential (primary) hypertension (4) Asthma Qualifiers: Asthma severity: moderate Asthma persistence: unspecified Asthma complication type: with acute exacerbation Qualified Code(s): J45.901 - Unspecified asthma with (acute) exacerbation
[2018-07-02] MEDS: Budesonide/Formoterol 160/4.5 1 PUFF INH IH SCH (21:41)
[2018-07-03] MEDS: Ipratropium/Albuterol Neb 3 ML IH SCH ×3 (03:52→15:28)
[2018-07-03] MEDS: MethylPREDNISolone 40 MG/ML VIAL IVP SCH (05:45)
[2018-07-03] MEDS: Cholecalciferol (D-3) 1,000 UNIT TABLET PO SCH (09:26)
[2018-07-03] MEDS: Aspirin Enteric Coated 81 MG Tablet PO SCH (09:26)
[2018-07-03] MEDS: Budesonide/Formoterol 160/4.5 1 PUFF INH IH SCH (10:02)
[2018-07-03] MEDS: Acetylcysteine 10% 2 ML INHSOL IH SCH ×2 (10:58→15:28)
[2018-07-03 12:02] VITALS: BP 113/72
--- NOTE | 2018-07-03 14:27 | Discharge Summary ---
<Abelardo Cerda - Last Filed: 07/03/18 14:37> Orders not resulted at time of discharge: Pending orders 06/26/18 15:56 ECG 12 lead ECG [ECG] Stat Date of Encounter: 07/03/18 Time of Encounter: 14:22 - Discharge Diagnosis (1) Acute respiratory failure with hypoxia Priority: Primary Status: Resolved (2) Asthma Priority: Secondary Status: Resolved Qualifiers: Asthma severity: moderate Asthma persistence: unspecified Asthma complication type: with acute exacerbation Qualified Code(s): J45.901 - Unspecified asthma with (acute) exacerbation (3) Drowsy Priority: Secondary Status: Resolved (4) HTN (hypertension) Priority: Secondary Status: Chronic Qualifiers: Hypertension type: essential hypertension Qualified Code(s): I10 - Essential (primary) hypertension (5) Influenza A Priority: Secondary Status: Resolved Hospital course: Ms. Demarco is a 82 year old female who presented from from home with chief complaint of body aches, cough, lightheadedness. She had poor oral intake at home. On admission she was found to have acute renal failure as well as influenza. His x-ray was negative for pneumonia. She was given IV fluids which resolved her acute renal failure. She was started on Tamiflu as well. Patient was also started on a course of steroids for asthma exacerbation and given Levaquin for bronchitis. Patient's shortness of breath improved. Initially she was on 3 L of oxygen when admitted. She did not qualify for oxygen during her walk test. She was evaluated by physical therapy and occupational therapy and was recommended to have home health. This was set up before discharge. Patient was increasingly drowsy on 07/02/18. She is on many medications that cause her to be drowsy including gabapentin, Seroquel, Klonopin. Her gabapentin and Klonopin were put on hold and this morning she is more conversational. These will be discontinued on discharged. She will be discharged on prednisone taper and symbicort inhaler. Follow up with PCP. Discharge discussed with: patient, family - Time Spent with Patient Total time spent providing and/or coordinating discharge services: - Discharge Medications Prescriptions: New Budesonide/Formoterol 160/4.5 [Symbicort 160/4.5] 2 puff IH BIDR #1 inh predniSONE [PredniSONE] 10 mg PO TAPER #30 tablet Continue Omeprazole [PriLOSEC] 20 mg PO TIDWM #0 Donepezil [Aricept] 5 mg PO QPM #0 Albuterol Sulfate [Albuterol Inhaler] 1 puff IH Q4HR PRN #1 hfa.aer.ad PRN Reason: Cough Acetaminophen [Tylenol] 1,000 mg PO TID PRN PRN Reason: Pain Quetiapine Fumarate [Seroquel] 25 mg PO HS Lisinopril [Zestril] 5 mg PO DAILY Escitalopram [Lexapro] 10 mg PO DAILY Ergocalciferol (VITAMIN D2) [Vitamin D2] 50,000 unit PO FR Clobetasol Propionate 0.05% [Temovate] 1 appl TP BID Estrogens, Conjugated [Premarin Cream] 1 gm VG DAILY Montelukast [Singulair] 10 mg PO QPM Oxybutynin [Ditropan] 5 mg PO HS Aspirin [Lo-Dose Aspirin EC] 81 mg PO DAILY Discontinued clonazePAM [Clonazepam] 0.5 mg PO DAILY PRN PRN Reason: Anxiety Gabapentin [Neurontin] 300 mg PO HS Home Medications: Donepezil [Aricept] 5 mg PO QPM #0 04/18/15 [History] Omeprazole [PriLOSEC] 20 mg PO TIDWM #0 04/18/15 [History] Albuterol Sulfate [Albuterol Inhaler] 1 puff IH Q4HR PRN #1 hfa.aer.ad 11/08/15 [Rx] Acetaminophen [Tylenol] 1,000 mg PO TID PRN 06/26/18 [History] Ergocalciferol (VITAMIN D2) [Vitamin D2] 50,000 unit PO FR 06/26/18 [History] Escitalopram [Lexapro] 10 mg PO DAILY 06/26/18 [History] Lisinopril [Zestril] 5 mg PO DAILY 06/26/18 [History] Quetiapine Fumarate [Seroquel] 25 mg PO HS 06/26/18 [History] Aspirin [Lo-Dose Aspirin EC] 81 mg PO DAILY 06/28/18 [History] Clobetasol Propionate 0.05% [Temovate] 1 appl TP BID 06/28/18 [History] Estrogens, Conjugated [Premarin Cream] 1 gm VG DAILY 06/28/18 [History] Montelukast [Singulair] 10 mg PO QPM 06/28/18 [History] Oxybutynin [Ditropan] 5 mg PO HS 06/28/18 [History] Budesonide/Formoterol 160/4.5 [Symbicort 160/4.5] 2 puff IH BIDR #1 inh 07/03/18 [Rx] predniSONE [PredniSONE] 10 mg PO TAPER #30 tablet 07/03/18 [Rx] Allergies/Adverse Reactions: Allergy/AdvReac Type Severity Reaction Status Date / Time TAVO Inhibitors Allergy Itching Verified 07/04/17 09:42 Penicillins Allergy HIVES, ITCH Verified 06/28/18 11:01 sulfamethoxazole Allergy Hives Verified 06/28/17 15:49 [From Bactrim] trimethoprim [From Bactrim] Allergy Hives Verified 06/28/17 15:49 Date of admission: 06/29/18 15:12 Primary care physician: Tyler Marquez MD Consults: 06/29/18 13:11 Consult to Physical Therapy [CONS] Routine Comment: Evaluate, develop and implement POC Reason for Consult: increased weakness d/t flu and dehydration Does patient have active BEDREST order?: No Is patient medically & hemodynamically stable?: Yes Discharging clinician: Abelardo Cerda Anticipated date of discharge: 07/03/18 - Constitutional Vitals: Temp Pulse Resp BP Pulse Ox 98.1 F 73 16 113/72 96 07/03/18 12:01 07/03/18 12:01 07/03/18 12:01 07/03/18 12:01 07/03/18 12:01 General appearance: Present: mild distress, A&O X 3, answers questions appropria tely Exam: General: calm, alert Cardiovascualr: Regular rate and rhythm with no murmur, absent gallops or rubs, absent pedal edema, radial pulses 2 out of 4 Lungs: Clear to auscultation bilaterally, not in respiratory distress Abdomen: Soft nontender, nondistended positive bowel sounds, absent hepatomegaly Skin: warm and dry, absent rash, absent open wounds and nodules MSK: absent clubbing, cyanosis, joints without swelling Neuro: Alert, oriented x3, no focal deficits Psych: calm, interactive calm - Patient Status Disposition: Home Health Service Condition: Fair Functional capacity at discharge: uses cane/walker Overall status at discharge: patient is progressing back to baseline - Discharge Instructions Instructions: Influenza (DC) Follow Up With: Tyler Marquez MD [Primary Care Provider] - 07/11/18 10:00 am Additional Instructions: Home Health has been set up through [facility]. They will contact you within 48 hours after D/C to set up a date and time to complete admission. If you need to contact them for any reason please call #[phone] or #[phone]. Follow-up appointments: If there is not an appointment listed below, please call your physician and schedule a follow-up appointment. If you have congestive heart failure and your symptoms return, make an appointment with your physician. Medication List: Carry an up to date list of medications you are taking at all time. We have given you an updated medication list including any new medications that you have been prescribed. Please provide that list to your primary provider Symptoms: If your condition changes or you experience any of the following symptoms, notify your physician immediately: Unusual or worsening pain, fever, persistent nausea and vomiting, bleeding, increase in swelling (especially in your legs), sudden weight gain, extreme dizziness, chest pain, increased drainage or redness from a wound or incision. Go to the emergency department if you experience a problem with breathing. Weights: If you have a history of swelling or shortness of breath, weigh yourself daily and notify your physician if you have a weight gain of two or more pounds in one day or 5 or more pounds in a week. If you experience any of the warning signs for stroke: Sudden numbness or weakness of the face, arm or leg; especially on one side of the body, sudden confusion, trouble speaking or understanding, sudden trouble seeing in one or both eyes, sudden trouble walking, dizziness, loss of balance or coordination, sudden sever headache with no cause; Call 911 or go to the emergency room. Stroke is a medical emergency. Some risk factors for stroke: Age, cigarette smoking, diabetes, excessive alcohol consumption, family history, high blood pressure, overweight, physical inactivity, prior stroke, heart attack, diagnosis of carotid artery stenosis or other artery disease. If you smoke, STOP: Smoking or tobacco use significantly increases your risk of heart and lung di sease. Your chance of disease greatly increases if you continue to smoke. For more information, call the [place] tobacco quit line for smoking cessation 1-865-YKEL-NOW ( ) - Diet and Activity Activity: increase activity as tolerated Diet: low fat, low cholesterol, low salt diet <FolsavannaelíasSupo A - Last Filed: 07/03/18 16:35> Orders not resulted at time of discharge: Pending orders 06/26/18 15:56 ECG 12 lead ECG [ECG] Stat Date of Encounter: 07/03/18 - Discharge Diagnosis (1) ADRIENNE (acute kidney injury) Status: Acute (2) HTN (hypertension) Status: Chronic Qualifiers: Hypertension type: essential hypertension Qualified Code(s): I10 - Essential (primary) hypertension (3) Influenza A Status: Resolved (4) Asthma Status: Resolved Qualifiers: Asthma severity: moderate Asthma persistence: unspecified Asthma complication type: with acute exacerbation Qualified Code(s): J45.901 - Unspecified asthma with (acute) exacerbation (5) Hypokalemia Status: Acute (6) Dehydration Status: Acute Hospital course: Ms. Demarco is a 82 year old female - Time Spent with Patient Total time spent providing and/or coordinating discharge services: Date of admission: 06/29/18 15:12 Primary care physician: Tyler Marquez MD Consults: 06/29/18 13:11 Consult to Physical Therapy [CONS] Routine Comment: Evaluate, develop and implement POC Reason for Consult: increased weakness d/t flu and dehydration Does patient have active BEDREST order?: No Is patient medically & hemodynamically stable?: Yes - Constitutional Vitals: Temp Pulse Resp BP Pulse Ox 98.1 F 73 12 113/72 94 07/03/18 12:01 07/03/18 12:01 07/03/18 15:28 07/03/18 12:01 07/03/18 15:28 - Attending Attestation I have seen and independently assessed this patient and I agree with plan as documented above Exam Gen. NAD CVS s1 s2 WNL Resp. Mostly clear to auscultation Plan Acute hypoxic respiratory failure 2/2 asthma/ COPD exacerbation and influenza. Continue nebs, steroids and antibiotics. Repeat xray. Weaned off oxygen and will complete course of steroids as an outpatient. F/U with PCP. 35 minutes was spent discharging this patient
--- NOTE | 2018-07-03 14:47 | Physician Discharge Referral ---
Home Health/Hosp Referral Info Transfer to: Home Health Attending Provider: Dr. Moseley Provider in Charge Post Discharge: PCP - Diagnosis (1) Acute respiratory failure with hypoxia Priority: Primary Status: Resolved (2) Asthma Priority: Secondary Status: Resolved (3) Drowsy Priority: Secondary Status: Resolved (4) HTN (hypertension) Priority: Secondary Status: Chronic (5) Influenza A Priority: Secondary Status: Resolved - Respiratory Orders Smoking Cessation: Smoking cessation has been advised. For more information, call the [place] Tobacco Quit Line at 2-383-IDYH-NOW. - Diet/Nutrition Diet/Nutrition Orders: Cardiac - Activity Activity Orders: Ambulate, Walker - Services Needed Following services are medically necessary services: Nursing, Physical Therapy, Occupational Therapy - Transfer Medications Prescriptions: Budesonide/Formoterol 160/4.5 [Symbicort 160/4.5] 2 puff IH BIDR #1 inh predniSONE [PredniSONE] 10 mg PO TAPER #30 tablet Home Medications: Donepezil [Aricept] 5 mg PO QPM #0 04/18/15 [History] Omeprazole [PriLOSEC] 20 mg PO TIDWM #0 04/18/15 [History] Albuterol Sulfate [Albuterol Inhaler] 1 puff IH Q4HR PRN #1 hfa.aer.ad 11/08/15 [Rx] Acetaminophen [Tylenol] 1,000 mg PO TID PRN 06/26/18 [History] Ergocalciferol (VITAMIN D2) [Vitamin D2] 50,000 unit PO FR 06/26/18 [History] Escitalopram [Lexapro] 10 mg PO DAILY 06/26/18 [History] Lisinopril [Zestril] 5 mg PO DAILY 06/26/18 [History] Quetiapine Fumarate [Seroquel] 25 mg PO HS 06/26/18 [History] Aspirin [Lo-Dose Aspirin EC] 81 mg PO DAILY 06/28/18 [History] Clobetasol Propionate 0.05% [Temovate] 1 appl TP BID 06/28/18 [History] Estrogens, Conjugated [Premarin Cream] 1 gm VG DAILY 06/28/18 [History] Montelukast [Singulair] 10 mg PO QPM 06/28/18 [History] Oxybutynin [Ditropan] 5 mg PO HS 06/28/18 [History] Budesonide/Formoterol 160/4.5 [Symbicort 160/4.5] 2 puff IH BIDR #1 inh 07/03/18 [Rx] predniSONE [PredniSONE] 10 mg PO TAPER #30 tablet 07/03/18 [Rx] Allergies/Adverse Reactions: Allergy/AdvReac Type Severity Reaction Status Date / Time TAVO Inhibitors Allergy Itching Verified 07/04/17 09:42 Penicillins Allergy HIVES, ITCH Verified 06/28/18 11:01 sulfamethoxazole Allergy Hives Verified 06/28/17 15:49 [From Bactrim] trimethoprim [From Bactrim] Allergy Hives Verified 06/28/17 15:49 Certification: Further, I certify that my clinical findings support that this patient is homebound (i.e. absences from home require considerable and taxing effort and are for medical reasons or gnosticist services or infrequently or short duration when for other reasons) because: Homebound Reason: Patient requires assistance of a person or device to safely leave home Attestation: My signature below is to certify that this patient is under my care and that I, or nurse practitioner, or a physician's assistant portfolio manager working with me, has a [id number] encounter with this patient.
== END 2018-07-03 16:35 | disposition home health service (06) | DRG 193 ==
LOC: 3BNU 14:25 → EMEROOARM 14:25 → SUATTDRO 18:47 → 3BNU 20:26 → SUATTDRO 06-29 15:12
PROVIDERS: ADMIT Internal Medicine; ATTEND Student in an Organized Health Care Education/Training Program

== ENCOUNTER 2019-12-31 16:05 | Inpatient (IN) ==
[2019-12-31 16:42] LABS: Basophils % 0.5 %; Eosinophils # 0.1 K/mcL (0.0-0.6); Eosinophils % 3.3 %; Hematocrit 43.9 % (35.3-44.9); Hemoglobin 14.7 g/dL (11.5-15.4); Immature Granulocytes % 0.2 % (0-4); Lymphocytes # 1.5 K/mcL (0.6-4.6); Lymphocytes % 34.7 %; Mean Corpuscular HGB Conc 33.5 g/dL (31.6-35.5); Mean Corpuscular Hemoglobin 33.5 pg (28.0-33.3); Mean Platelet Volume 9.1 fL (9.4-12.4); Monocytes # 0.5 K/mcL (0.0-1.3); Monocytes % 11.2 %; Neutrophils # 2.2 K/mcL (1.6-8.9); Platelet Count 195 K/mcL (140-400); Red Blood Count 4.39 M/mcL (3.82-4.97); Segmented Neutrophils % 50.1 %; White Blood Count 4.3 K/mcL (4.3-11.1)
[2019-12-31 16:59] LABS: INR 0.9; Prothrombin Time 10.7 Seconds (9.4-12.1)
[2019-12-31 17:01] LABS: Activated Partial Thrombo Time 37.3 Seconds (26.0-36.0)
[2019-12-31] MEDS ORDERED: niCARdipine 20 MG/200 ML MLS IVC ONE (17:26)
[2019-12-31 17:30] LABS: Alanine Aminotransferase 8 Units/L (7-52); Albumin 4.2 g/dL (3.5-5.7); Albumin/Globulin Ratio 1.6 (1.1-2.2); Alkaline Phosphatase 68 Units/L (34-104); Aspartate Amino Transferase 16 Units/L (13-39); BUN/Creatinine Ratio 19 (6-26); Bilirubin,Direct 0.1 mg/dL (0.0-0.2); Bilirubin,Indirect 0.4 mg/dL (0.0-1.0); Bilirubin,Total 0.5 mg/dL (0.3-1.0); Blood Urea Nitrogen 17 mg/dL (8-23); Calcium 9.5 mg/dL (8.6-10.3); Carbon Dioxide 24 mEq/L (23-29); Chloride 107 mEq/L (98-107); Creatine Kinase 62 Units/L (30-223); Ethanol < 10 mg/dL (Less than 10); Globulin 2.7 g/dL (2.4-3.5); Glucose 77 mg/dL (70-105); Osmolality,Calculated 288 (280-300); Potassium 3.8 mEq/L (3.5-5.1); Sodium 139 mEq/L (136-145); Total Protein 6.9 g/dL (6.4-8.9); Troponin I < 0.03 ng/mL (< 0.04); eGFR For African Americans > 60 (> 60); eGFR For Non-African Americans 59 (> 60)
[2019-12-31] MEDS: niCARdipine 20 MG/200 ML MLS IVC SCH ×2 (17:35→22:00)
[2019-12-31 17:43] LABS: Thyroid Stimulating Hormone 2.786 mcIU/mL (0.340-5.600)
[2019-12-31 18:05] LABS: Bilirubin,Urine Negative (Negative); Blood,Urine Negative (Negative); Clarity,Urine Clear (Clear); Glucose,Urine (UA) Normal (Normal); Ketones,Urine Negative (Negative); Leukocyte Esterase,Urine Negative (Negative); Nitrite,Urine Negative (Negative); Protein,Urine Negative (Neg-Trace); Urobilinogen,Urine Normal (Normal)
[2019-12-31 18:09] LABS: Amphetamine Screen,Urine Negative ng/mL (Cutoff=1000); Barbiturate Screen,Urine Negative ng/mL (Cutoff=200); Benzodiazepines Screen,Urine Negative ng/mL (Cutoff=200); Cannabinoid Screen,Urine Negative ng/mL (Cutoff = 50); Cocaine Screen,Urine Negative ng/mL (Cutoff= 300); Opiate Screen,Urine Negative ng/mL (Cutoff=300); Phencyclidine Screen,Urine Negative ng/mL (Cutoff=25)
[2019-12-31 18:12] LABS: Color,Urine Light Yellow (Yellow)
[2019-12-31] MEDS ORDERED: Ondansetron 4 MG/2 ML VIAL IVP PRN (19:26)
[2019-12-31] MEDS ORDERED: Naloxone 0.4 MG/ML INJ IVP PRN (19:26)
[2019-12-31] MEDS ORDERED: clonazePAM 0.5 MG TABLET PO PRN (19:29)
[2019-12-31] MEDS ORDERED: 0.9 % Sodium Chloride 1,000 ML IVC SCH (19:30)
[2019-12-31] MEDS ORDERED: Melatonin 3 MG TABLET PO PRN (22:35)
[2020-01-01 05:57] LABS: Basophils % 0.4 %; Eosinophils # 0.1 K/mcL (0.0-0.6); Eosinophils % 1.3 %; Hematocrit 43.3 % (35.3-44.9); Hemoglobin 14.7 g/dL (11.5-15.4); Immature Granulocytes % 0.2 % (0-4); Lymphocytes # 0.8 K/mcL (0.6-4.6); Lymphocytes % 16.2 %; Mean Corpuscular HGB Conc 33.9 g/dL (31.6-35.5); Mean Corpuscular Hemoglobin 33.9 pg (28.0-33.3); Mean Platelet Volume 9.8 fL (9.4-12.4); Monocytes # 0.4 K/mcL (0.0-1.3); Monocytes % 8.2 %; Neutrophils # 3.5 K/mcL (1.6-8.9); Platelet Count 191 K/mcL (140-400); Red Blood Count 4.33 M/mcL (3.82-4.97); Segmented Neutrophils % 73.7 %; White Blood Count 4.8 K/mcL (4.3-11.1)
[2020-01-01 06:00] LABS: Alanine Aminotransferase 7 Units/L (7-52); Albumin 3.9 g/dL (3.5-5.7); Albumin/Globulin Ratio 1.6 (1.1-2.2); Alkaline Phosphatase 61 Units/L (34-104); Aspartate Amino Transferase 16 Units/L (13-39); BUN/Creatinine Ratio 18 (6-26); Bilirubin,Total 0.5 mg/dL (0.3-1.0); Blood Urea Nitrogen 14 mg/dL (8-23); Calcium 9.2 mg/dL (8.6-10.3); Carbon Dioxide 22 mEq/L (23-29); Chloride 106 mEq/L (98-107); Globulin 2.4 g/dL (2.4-3.5); Glucose 95 mg/dL (70-105); Osmolality,Calculated 288 (280-300); Potassium 3.5 mEq/L (3.5-5.1); Sodium 139 mEq/L (136-145); Total Protein 6.3 g/dL (6.4-8.9); Troponin I < 0.03 ng/mL (< 0.04); eGFR For African Americans > 60 (> 60); eGFR For Non-African Americans > 60 (> 60)
[2020-01-01 07:21] LABS: Chol/HDL Ratio 4.2 (0-4.9); Cholesterol 261 mg/dL (< 200); HDL Cholesterol 62 mg/dL (40-59); LDL Cholesterol,Calculated 181 mg/dL (< 100); Triglycerides 92 mg/dL (< 150)
[2020-01-01] MEDS: lisinopriL 5 MG TABLET PO SCH (07:37)
[2020-01-01] MEDS: Gabapentin 100 MG CAPSULE PO SCH (07:38)
[2020-01-01] MEDS: Aspirin Enteric Coated 81 MG Tablet PO SCH (07:38)
[2020-01-01] MEDS ORDERED: lisinopriL 5 MG TABLET PO SCH (09:00)
[2020-01-01 10:30] LABS: Estimated Average Glucose 114 mg/dl
[2020-01-01 11:44] LABS: Folate 7.5 ng/mL (3.0-16.0)
[2020-01-01] MEDS: niCARdipine 20 MG/200 ML MLS IVC SCH ×2 (17:04→17:05)
[2020-01-01] MEDS: Acetaminophen 325 MG TABLET PO PRN (22:10)
[2020-01-02] MEDS: Acetaminophen 325 MG TABLET PO PRN (06:09)
[2020-01-02] MEDS ORDERED: Ketorolac 15 MG/ML VIAL IVP ONE (07:59)
[2020-01-02] MEDS: Aspirin Enteric Coated 81 MG Tablet PO SCH (08:38)
[2020-01-02] MEDS: lisinopriL 5 MG TABLET PO SCH (08:38)
[2020-01-02] MEDS: Gabapentin 100 MG CAPSULE PO SCH (08:39)
[2020-01-02 10:40] VITALS: BP 157/80
== END 2020-01-02 16:55 | disposition home health service (06) | DRG 79 ==
LOC: EMEROOARM 16:05 → 2NNU 16:05 → SUATTDRO 20:19 → 2NNU 21:20 → 3ANU 01-01 16:59
PROVIDERS: ADMIT Student in an Organized Health Care Education/Training Program; ATTEND Family Medicine

== ENCOUNTER 2021-03-04 20:45 | Inpatient (IN) ==
[2021-03-04 22:20] LABS: Prothrombin Time 10.9 Seconds (9.4-12.1)
[2021-03-04 22:23] LABS: Activated Partial Thrombo Time 36.6 Seconds (26.0-36.0)
[2021-03-04 23:04] LABS: Bilirubin,Urine Negative (Negative); Blood,Urine Small (Negative); Clarity,Urine Clear (Clear); Color,Urine Yellow (Yellow); Glucose,Urine (UA) Normal (Normal); Ketones,Urine Negative (Negative); Leukocyte Esterase,Urine Moderate (Negative); Mucus,Urine Few per lpf (None-Few); Nitrite,Urine Negative (Negative); Protein,Urine 50 mg/dL (Neg-Trace); Specific Gravity,Urine 1.029 (1.010-1.025); Squamous Epithelial Cell,Urine Moderate per hpf (None-Few)
[2021-03-04 23:07] LABS: Amphetamine Screen,Urine Negative ng/mL (Cutoff=1000); Barbiturate Screen,Urine Negative ng/mL (Cutoff=200); Benzodiazepines Screen,Urine Negative ng/mL (Cutoff=200); Cannabinoid Screen,Urine Negative ng/mL (Cutoff = 50); Cocaine Screen,Urine Negative ng/mL (Cutoff= 300); Opiate Screen,Urine Negative ng/mL (Cutoff=300); Phencyclidine Screen,Urine Negative ng/mL (Cutoff=25)
[2021-03-04 23:39] LABS: Alanine Aminotransferase 6 Units/L (7-52); Albumin 3.8 g/dL (3.5-5.7); Albumin/Globulin Ratio 1.5 (1.1-2.2); Alkaline Phosphatase 63 Units/L (34-104); Aspartate Amino Transferase 15 Units/L (13-39); BUN/Creatinine Ratio 12 (6-26); Bilirubin,Total 0.3 mg/dL (0.3-1.0); Blood Urea Nitrogen 15 mg/dL (8-23); Calcium 9.2 mg/dL (8.6-10.3); Carbon Dioxide 25 mEq/L (23-29); Chloride 108 mEq/L (98-107); Globulin 2.5 g/dL (2.4-3.5); Glucose 96 mg/dL (70-105); Osmolality,Calculated 293 (280-300); Sodium 141 mEq/L (136-145); Total Protein 6.3 g/dL (6.4-8.9); Troponin I < 0.03 ng/mL (< 0.04); eGFR For African Americans 47 (> 60); eGFR For Non-African Americans 39 (> 60)
[2021-03-04 23:42] LABS: Basophils % 0.5 %; Eosinophils # 0.2 K/mcL (0.0-0.6); Eosinophils % 4.1 %; Hematocrit 40.6 % (35.3-44.9); Hemoglobin 13.6 g/dL (11.5-15.4); Immature Granulocytes % 0.2 % (0-4); Lymphocytes # 1.3 K/mcL (0.6-4.6); Lymphocytes % 30.9 %; Mean Corpuscular HGB Conc 33.5 g/dL (31.6-35.5); Mean Corpuscular Hemoglobin 33.1 pg (28.0-33.3); Mean Corpuscular Volume 98.8 fL (83.0-100.0); Mean Platelet Volume 10.5 fL (9.4-12.4); Monocytes # 0.5 K/mcL (0.0-1.3); Monocytes % 11.6 %; Neutrophils # 2.2 K/mcL (1.6-8.9); Platelet Count 205 K/mcL (140-400); Red Blood Count 4.11 M/mcL (3.82-4.97); Red Cell Distribution Width 13.1 % (11.5-14.5); Segmented Neutrophils % 52.7 %; White Blood Count 4.1 K/mcL (4.3-11.1)
[2021-03-05] MEDS ORDERED: Naloxone 0.4 MG/ML INJ IVP PRN (01:37)
[2021-03-05] MEDS ORDERED: Melatonin 3 MG TABLET PO PRN (01:37)
[2021-03-05] MEDS ORDERED: Ringers Solution, Lactated 1,000 ML IVC SCH (01:45)
[2021-03-05] MEDS ORDERED: Gadolinium Contrast Agent (WT Based) IV PRN (02:03)
[2021-03-05] MEDS: Acetaminophen 325 MG TABLET PO PRN ×2 (03:49→09:51)
[2021-03-05 06:58] LABS: Basophils % 0.6 %; Eosinophils # 0.1 K/mcL (0.0-0.6); Eosinophils % 2.7 %; Hematocrit 42.3 % (35.3-44.9); Hemoglobin 14.1 g/dL (11.5-15.4); Immature Granulocytes % 0.2 % (0-4); Lymphocytes # 1.5 K/mcL (0.6-4.6); Lymphocytes % 29.9 %; Mean Corpuscular HGB Conc 33.3 g/dL (31.6-35.5); Mean Corpuscular Hemoglobin 32.3 pg (28.0-33.3); Monocytes # 0.4 K/mcL (0.0-1.3); Monocytes % 8.8 %; Neutrophils # 2.8 K/mcL (1.6-8.9); Platelet Count 194 K/mcL (140-400); Red Blood Count 4.36 M/mcL (3.82-4.97); Red Cell Distribution Width 12.9 % (11.5-14.5); Segmented Neutrophils % 57.8 %; White Blood Count 4.9 K/mcL (4.3-11.1)
[2021-03-05 07:20] LABS: BUN/Creatinine Ratio 17 (6-26); Blood Urea Nitrogen 17 mg/dL (8-23); Calcium 9.6 mg/dL (8.6-10.3); Carbon Dioxide 24 mEq/L (23-29); Chloride 107 mEq/L (98-107); Chol/HDL Ratio 3.9 (0-4.9); Cholesterol 279 mg/dL (< 200); Glucose 93 mg/dL (70-105); HDL Cholesterol 72 mg/dL (40-59); LDL Cholesterol,Calculated 181 mg/dL (< 100); Magnesium 1.7 mg/dL (1.6-2.6); Osmolality,Calculated 291 (280-300); Potassium 3.4 mEq/L (3.5-5.1); Sodium 140 mEq/L (136-145); Triglycerides 131 mg/dL (< 150); eGFR For African Americans > 60 (> 60); eGFR For Non-African Americans 53 (> 60)
[2021-03-05 07:22] LABS: Prothrombin Time 10.9 Seconds (9.4-12.1)
[2021-03-05] MEDS: Aspirin Enteric Coated 81 MG Tablet PO SCH (09:51)
[2021-03-05] MEDS: lisinopriL 20 MG TABLET PO SCH (09:51)
[2021-03-05] MEDS: amLODIPine 5 MG TABLET PO SCH (09:51)
[2021-03-05] MEDS: Ondansetron 4 MG/2 ML VIAL IVP PRN (09:52)
[2021-03-05] MEDS: Gabapentin 100 MG CAPSULE PO SCH ×2 (16:28→20:40)
[2021-03-06] MEDS: Cholecalciferol (D-3) 1,000 UNIT (25MCG) TABLET PO SCH (09:07)
[2021-03-06] MEDS: Aspirin Enteric Coated 81 MG Tablet PO SCH (09:08)
[2021-03-06] MEDS: Gabapentin 100 MG CAPSULE PO SCH ×3 (09:08→20:13)
[2021-03-06] MEDS: amLODIPine 5 MG TABLET PO SCH (09:08)
[2021-03-06] MEDS: lisinopriL 20 MG TABLET PO SCH (09:08)
[2021-03-06] MEDS ORDERED: Perflutren Lipid Microsphere 1.3 ML in 0.9 % Sodium Chloride 8.7 ML IVP PRN (11:31)
[2021-03-06 14:52] LABS: Estimated Average Glucose 117 mg/dl; Hemoglobin A1C 5.7 %
[2021-03-06] MEDS: Acetaminophen 325 MG TABLET PO PRN (20:10)
[2021-03-07 06:34] LABS: Hematocrit 48.8 % (35.3-44.9); Mean Corpuscular HGB Conc 33.8 g/dL (31.6-35.5); Mean Corpuscular Hemoglobin 32.6 pg (28.0-33.3); Mean Corpuscular Volume 96.4 fL (83.0-100.0); Platelet Count 181 K/mcL (140-400); Red Blood Count 5.06 M/mcL (3.82-4.97); Red Cell Distribution Width 12.9 % (11.5-14.5)
[2021-03-07 06:35] LABS: Hemoglobin 16.5 g/dL (11.5-15.4); White Blood Count 7.9 K/mcL (4.3-11.1)
[2021-03-07 06:50] LABS: Alanine Aminotransferase 7 Units/L (7-52); Albumin 4.3 g/dL (3.5-5.7); Albumin/Globulin Ratio 1.5 (1.1-2.2); Alkaline Phosphatase 62 Units/L (34-104); Aspartate Amino Transferase 16 Units/L (13-39); BUN/Creatinine Ratio 21 (6-26); Bilirubin,Total 0.7 mg/dL (0.3-1.0); Blood Urea Nitrogen 20 mg/dL (8-23); Calcium 10.3 mg/dL (8.6-10.3); Carbon Dioxide 24 mEq/L (23-29); Chloride 102 mEq/L (98-107); Globulin 2.8 g/dL (2.4-3.5); Glucose 91 mg/dL (70-105); Osmolality,Calculated 286 (280-300); Potassium 3.7 mEq/L (3.5-5.1); Sodium 137 mEq/L (136-145); Total Protein 7.1 g/dL (6.4-8.9); eGFR For African Americans > 60 (> 60); eGFR For Non-African Americans 55 (> 60)
[2021-03-07] MEDS: amLODIPine 5 MG TABLET PO SCH (08:22)
[2021-03-07] MEDS: Gabapentin 100 MG CAPSULE PO SCH ×3 (08:22→20:46)
[2021-03-07] MEDS: Aspirin Enteric Coated 81 MG Tablet PO SCH (08:22)
[2021-03-07] MEDS: Cholecalciferol (D-3) 1,000 UNIT (25MCG) TABLET PO SCH (08:23)
[2021-03-07] MEDS: lisinopriL 20 MG TABLET PO SCH (08:23)
[2021-03-08] MEDS: Aspirin Enteric Coated 81 MG Tablet PO SCH (07:38)
[2021-03-08] MEDS: lisinopriL 20 MG TABLET PO SCH (07:38)
[2021-03-08] MEDS: Gabapentin 100 MG CAPSULE PO SCH ×3 (07:38→20:45)
[2021-03-08] MEDS: amLODIPine 5 MG TABLET PO SCH (07:38)
[2021-03-08] MEDS: Cholecalciferol (D-3) 1,000 UNIT (25MCG) TABLET PO SCH (07:38)
[2021-03-08 14:27] LABS: Bilirubin,Urine Negative (Negative); Blood,Urine Trace (Negative); Clarity,Urine Clear (Clear); Color,Urine Yellow (Yellow); Glucose,Urine (UA) Normal (Normal); Ketones,Urine 40 mg/dL (Negative); Leukocyte Esterase,Urine Negative (Negative); Mucus,Urine Few per lpf (None-Few); Nitrite,Urine Negative (Negative); PH,Urine 5.5 pH Units (5.0-8.0); Protein,Urine 30 mg/dL (Neg-Trace); Specific Gravity,Urine 1.026 (1.010-1.025); Urobilinogen,Urine Normal (Normal); WBC,Urine 0-3 per hpf (0-3)
[2021-03-08 14:51] LABS: VBG HCO3 25 mEq/L (21-27); VBG PCO2 40 mmHg (41-51); VBG PO2 95 mmHg (25-50)
[2021-03-09] MEDS: Cholecalciferol (D-3) 1,000 UNIT (25MCG) TABLET PO SCH (08:41)
[2021-03-09] MEDS: Gabapentin 100 MG CAPSULE PO SCH ×3 (08:41→21:14)
[2021-03-09] MEDS: amLODIPine 5 MG TABLET PO SCH (08:41)
[2021-03-09] MEDS: Aspirin Enteric Coated 81 MG Tablet PO SCH (08:42)
[2021-03-09] MEDS: lisinopriL 20 MG TABLET PO SCH (08:42)
[2021-03-10] MEDS: Cholecalciferol (D-3) 1,000 UNIT (25MCG) TABLET PO SCH (08:33)
[2021-03-10] MEDS: lisinopriL 20 MG TABLET PO SCH (08:33)
[2021-03-10] MEDS: Gabapentin 100 MG CAPSULE PO SCH ×3 (08:33→20:53)
[2021-03-10] MEDS: amLODIPine 5 MG TABLET PO SCH (08:33)
[2021-03-10] MEDS: Aspirin Enteric Coated 81 MG Tablet PO SCH (08:33)
[2021-03-10] MEDS: Acetaminophen 325 MG TABLET PO PRN (16:39)
[2021-03-11 07:12] VITALS: O2SAT 93
[2021-03-11] MEDS: Gabapentin 100 MG CAPSULE PO SCH (07:41)
[2021-03-11] MEDS: amLODIPine 5 MG TABLET PO SCH (07:42)
[2021-03-11] MEDS: Cholecalciferol (D-3) 1,000 UNIT (25MCG) TABLET PO SCH (07:42)
[2021-03-11] MEDS: lisinopriL 20 MG TABLET PO SCH (07:42)
[2021-03-11] MEDS: Aspirin Enteric Coated 81 MG Tablet PO SCH (07:42)
[2021-03-11] MEDS: Ondansetron 4 MG/2 ML VIAL IVP PRN (09:41)
[2021-03-11 11:32] VITALS: BP 104/69; PULSE 77; TEMP 96.9
== END 2021-03-11 15:41 | DRG 65 ==
LOC: EMEROOARM 20:45 → 3ANU 20:45 → SUATTDRO 03-05 01:52 → 3ANU 03-05 02:16 → SUATTDRO 03-06 16:05
PROVIDERS: ADMIT Family Medicine; ATTEND Family Medicine

== ENCOUNTER 2021-07-01 17:18 | Inpatient (IN) ==
[2021-07-01] MEDS ORDERED: Melatonin 3 MG TABLET PO PRN (20:44)
[2021-07-01] MEDS ORDERED: Naloxone 0.4 MG/ML INJ IVP PRN (20:44)
[2021-07-01] MEDS ORDERED: 0.9 % Sodium Chloride 1,000 ML IVC SCH (21:30)
[2021-07-02 00:52] LABS: Hematocrit 37.2 % (35.3-44.9); Hemoglobin 11.3 g/dL (11.5-15.4); Mean Corpuscular HGB Conc 30.4 g/dL (31.6-35.5); Mean Corpuscular Hemoglobin 33.4 pg (28.0-33.3); Mean Corpuscular Volume 110.1 fL (83.0-100.0); Mean Platelet Volume 9.8 fL (9.4-12.4); Platelet Count 253 K/mcL (140-400); Red Blood Count 3.38 M/mcL (3.82-4.97); Red Cell Distribution Width 15.9 % (11.5-14.5); White Blood Count 9.8 K/mcL (4.3-11.1)
[2021-07-02 01:46] LABS: Albumin 3.3 g/dL (3.5-5.7); Bilirubin,Total 0.3 mg/dL (0.3-1.0); Calcium 10.9 mg/dL (8.6-10.3); Globulin 3.4 g/dL (2.4-3.5); Magnesium 1.8 mg/dL (1.6-2.6); Phosphorous 3.3 mg/dL (2.7-4.5); Potassium 5.7 mEq/L (3.5-5.1); Total Protein 6.7 g/dL (6.4-8.9)
[2021-07-02] MEDS ORDERED: Insulin Human Regular 10 UNIT in 0.9 % Sodium Chloride 10 ML IV ONE (07:45)
[2021-07-02] MEDS ORDERED: *HR* Dextrose 50 % in Water (Syg) 50 ML SYRINGE IVP ONE ×2 (07:45→08:30)
[2021-07-02] MEDS ORDERED: SODIUM ZIRCONIUM CYCLOSILICATE 5 GM POWD.PACK PO SCH (08:00)
[2021-07-02] MEDS: cefTRIAXone 1,000 MG in 0.9 % Sodium Chloride 10 ML IVP SCH (08:21)
[2021-07-02] MEDS: Calcium Gluconate 1gm/50mL 1 GM/50 ML BAG IVPB SCH ×2 (08:21→09:45)
[2021-07-02] MEDS ORDERED: Melatonin 3 MG TABLET PO PRN (09:31)
[2021-07-02] MEDS: Sodium Bicarbonate 150 MEQ in D5% in Water 1,000 ML IVC SCH (10:22)
[2021-07-02] MEDS: Gabapentin 100 MG CAPSULE PO SCH ×2 (14:06→20:29)
[2021-07-02 17:38] LABS: Calcium 10.3 mg/dL (8.6-10.3); Potassium 5.2 mEq/L (3.5-5.1)
[2021-07-02] MEDS: SODIUM ZIRCONIUM CYCLOSILICATE 5 GM POWD.PACK PO SCH (20:30)
[2021-07-03 02:46] LABS: Basophils % 0.5 %; Eosinophils # 0.3 K/mcL (0.0-0.6); Eosinophils % 4.4 %; Hematocrit 31.6 % (35.3-44.9); Hemoglobin 9.9 g/dL (11.5-15.4); Immature Granulocytes % 0.3 % (0-4); Lymphocytes # 0.9 K/mcL (0.6-4.6); Lymphocytes % 14.6 %; Mean Corpuscular HGB Conc 31.3 g/dL (31.6-35.5); Mean Corpuscular Hemoglobin 32.7 pg (28.0-33.3); Mean Corpuscular Volume 104.3 fL (83.0-100.0); Mean Platelet Volume 9.8 fL (9.4-12.4); Monocytes # 0.7 K/mcL (0.0-1.3); Monocytes % 10.1 %; Neutrophils # 4.5 K/mcL (1.6-8.9); Platelet Count 226 K/mcL (140-400); Red Blood Count 3.03 M/mcL (3.82-4.97); Red Cell Distribution Width 15.8 % (11.5-14.5); Segmented Neutrophils % 70.1 %; White Blood Count 6.4 K/mcL (4.3-11.1)
[2021-07-03 03:06] LABS: Albumin 2.9 g/dL (3.5-5.7); Bilirubin,Direct 0.1 mg/dL (0.0-0.2); Bilirubin,Indirect 0.2 mg/dL (0.0-1.0); Bilirubin,Total 0.3 mg/dL (0.3-1.0); Calcium 9.8 mg/dL (8.6-10.3); Globulin 2.8 g/dL (2.4-3.5); Magnesium 1.5 mg/dL (1.6-2.6); Phosphorous 2.3 mg/dL (2.7-4.5); Total Protein 5.7 g/dL (6.4-8.9)
[2021-07-03] MEDS: SODIUM ZIRCONIUM CYCLOSILICATE 5 GM POWD.PACK PO SCH ×2 (09:38→19:36)
[2021-07-03] MEDS: cefTRIAXone 1,000 MG in 0.9 % Sodium Chloride 10 ML IVP SCH (09:38)
[2021-07-03] MEDS: Aspirin Enteric Coated 81 MG Tablet PO SCH (09:39)
[2021-07-03] MEDS: Gabapentin 100 MG CAPSULE PO SCH ×3 (09:39→19:36)
[2021-07-03] MEDS: Cholecalciferol (D-3) 1,000 UNIT (25MCG) TABLET PO SCH (09:39)
[2021-07-03] MEDS: amLODIPine 5 MG TABLET PO SCH (09:40)
[2021-07-03] MEDS: Sodium Bicarbonate 150 MEQ in D5% in Water 1,000 ML IVC SCH ×2 (11:18→11:34)
[2021-07-03] MEDS: Sodium Bicarbonate 75 MEQ in 0.45 % Sodium Chloride 1,000 ML IVC SCH (16:37)
[2021-07-04 01:16] LABS: Basophils % 0.4 %; Eosinophils # 0.2 K/mcL (0.0-0.6); Eosinophils % 2.5 %; Hemoglobin 10.1 g/dL (11.5-15.4); Immature Granulocytes % 0.2 % (0-4); Lymphocytes # 1.8 K/mcL (0.6-4.6); Lymphocytes % 21.6 %; Mean Corpuscular HGB Conc 33.7 g/dL (31.6-35.5); Mean Corpuscular Hemoglobin 34.8 pg (28.0-33.3); Mean Corpuscular Volume 103.4 fL (83.0-100.0); Mean Platelet Volume 9.8 fL (9.4-12.4); Neutrophils # 5.1 K/mcL (1.6-8.9); Platelet Count 224 K/mcL (140-400); Red Cell Distribution Width 15.5 % (11.5-14.5); Segmented Neutrophils % 63.3 %; White Blood Count 8.1 K/mcL (4.3-11.1)
[2021-07-04 01:39] LABS: BUN/Creatinine Ratio 14 (6-26); Blood Urea Nitrogen 15 mg/dL (8-23); Calcium 8.8 mg/dL (8.6-10.3); Carbon Dioxide 33 mEq/L (23-29); Chloride 99 mEq/L (98-107); Glucose 93 mg/dL (70-105); Magnesium 1.8 mg/dL (1.6-2.6); Osmolality,Calculated 287 (280-300); Potassium 3.4 mEq/L (3.5-5.1); Sodium 138 mEq/L (136-145); eGFR For African Americans > 60 (> 60); eGFR For Non-African Americans 50 (> 60)
[2021-07-04 02:00] LABS: Folate 2.5 ng/mL (3.0-16.0)
[2021-07-04] MEDS: Sodium Bicarbonate 75 MEQ in 0.45 % Sodium Chloride 1,000 ML IVC SCH (04:21)
[2021-07-04] MEDS ORDERED: Cyanocobalamin (B-12) 1,000 MCG/ML VIAL SQ ONE (07:27)
[2021-07-04] MEDS: Aspirin Enteric Coated 81 MG Tablet PO SCH (08:52)
[2021-07-04] MEDS: amLODIPine 5 MG TABLET PO SCH (08:53)
[2021-07-04] MEDS: Folic Acid 1 MG TABLET PO SCH (08:53)
[2021-07-04] MEDS: cefTRIAXone 1,000 MG in 0.9 % Sodium Chloride 10 ML IVP SCH (08:53)
[2021-07-04] MEDS: Gabapentin 100 MG CAPSULE PO SCH ×3 (08:53→21:17)
[2021-07-04] MEDS: Cholecalciferol (D-3) 1,000 UNIT (25MCG) TABLET PO SCH (08:53)
[2021-07-05 04:59] LABS: Basophils % 0.1 %; Hematocrit 32.7 % (35.3-44.9); Hemoglobin 10.6 g/dL (11.5-15.4); Immature Granulocytes % 0.5 % (0-4); Lymphocytes # 1.3 K/mcL (0.6-4.6); Lymphocytes % 9.5 %; Mean Corpuscular HGB Conc 32.4 g/dL (31.6-35.5); Mean Corpuscular Hemoglobin 33.7 pg (28.0-33.3); Mean Corpuscular Volume 103.8 fL (83.0-100.0); Mean Platelet Volume 10.1 fL (9.4-12.4); Monocytes # 1.7 K/mcL (0.0-1.3); Monocytes % 11.9 %; Platelet Count 269 K/mcL (140-400); Red Blood Count 3.15 M/mcL (3.82-4.97); Red Cell Distribution Width 15.1 % (11.5-14.5)
[2021-07-05 05:03] LABS: White Blood Count 14.1 K/mcL (4.3-11.1)
[2021-07-05 05:16] LABS: BUN/Creatinine Ratio 14 (6-26); Blood Urea Nitrogen 14 mg/dL (8-23); Carbon Dioxide 33 mEq/L (23-29); Chloride 96 mEq/L (98-107); Glucose 101 mg/dL (70-105); Magnesium 1.6 mg/dL (1.6-2.6); Osmolality,Calculated 281 (280-300); Potassium 3.5 mEq/L (3.5-5.1); Sodium 135 mEq/L (136-145); eGFR For African Americans > 60 (> 60); eGFR For Non-African Americans 53 (> 60)
[2021-07-05] MEDS: Cholecalciferol (D-3) 1,000 UNIT (25MCG) TABLET PO SCH (09:32)
[2021-07-05] MEDS: Folic Acid 1 MG TABLET PO SCH (09:32)
[2021-07-05] MEDS: Aspirin Enteric Coated 81 MG Tablet PO SCH (09:32)
[2021-07-05] MEDS: cefTRIAXone 1,000 MG in 0.9 % Sodium Chloride 10 ML IVP SCH (09:32)
[2021-07-05] MEDS: amLODIPine 5 MG TABLET PO SCH (09:32)
[2021-07-05] MEDS: Gabapentin 100 MG CAPSULE PO SCH ×3 (09:32→22:05)
[2021-07-05] MEDS ORDERED: cefTRIAXone 1,000 MG in Water for inj. (sterile) 10 ML IVP ONE (14:00)
[2021-07-05] MEDS: D5% in 0.9% NACL 1,000 ML IVC SCH (14:53)
[2021-07-06 03:24] LABS: Basophils % 0.1 %; Hematocrit 31.3 % (35.3-44.9); Hemoglobin 10.1 g/dL (11.5-15.4); Immature Granulocytes % 0.3 % (0-4); Lymphocytes # 1.1 K/mcL (0.6-4.6); Lymphocytes % 7.4 %; Mean Corpuscular HGB Conc 32.3 g/dL (31.6-35.5); Mean Corpuscular Hemoglobin 33.9 pg (28.0-33.3); Monocytes # 1.2 K/mcL (0.0-1.3); Monocytes % 8.2 %; Neutrophils # 12.4 K/mcL (1.6-8.9); Platelet Count 236 K/mcL (140-400); Red Blood Count 2.98 M/mcL (3.82-4.97); Red Cell Distribution Width 14.5 % (11.5-14.5); White Blood Count 14.8 K/mcL (4.3-11.1)
[2021-07-06 03:43] LABS: BUN/Creatinine Ratio 16 (6-26); Blood Urea Nitrogen 16 mg/dL (8-23); Calcium 8.6 mg/dL (8.6-10.3); Carbon Dioxide 30 mEq/L (23-29); Chloride 98 mEq/L (98-107); Glucose 151 mg/dL (70-105); Magnesium 1.5 mg/dL (1.6-2.6); Osmolality,Calculated 280 (280-300); Potassium 3.3 mEq/L (3.5-5.1); Sodium 133 mEq/L (136-145); eGFR For African Americans > 60 (> 60); eGFR For Non-African Americans 52 (> 60)
[2021-07-06] MEDS: D5% in 0.9% NACL 1,000 ML IVC SCH ×2 (05:00→22:23)
[2021-07-06] MEDS ORDERED: Potassium Phosphate 44 MEQ in 0.9 % Sodium Chloride 250 ML IVPB ONE (07:18)
[2021-07-06] MEDS: Cholecalciferol (D-3) 1,000 UNIT (25MCG) TABLET PO SCH (08:54)
[2021-07-06] MEDS: Aspirin Enteric Coated 81 MG Tablet PO SCH (08:54)
[2021-07-06] MEDS: Folic Acid 1 MG TABLET PO SCH (08:54)
[2021-07-06] MEDS: Gabapentin 100 MG CAPSULE PO SCH ×3 (08:54→21:01)
[2021-07-06] MEDS: amLODIPine 5 MG TABLET PO SCH (08:54)
[2021-07-06] MEDS: MetroNIDAZOLE 500 MG/100 ML 500 MG/100 ML BAG IVPB SCH ×2 (11:54→21:01)
[2021-07-06] MEDS ORDERED: Cefepime HCl 1,000 MG in 0.9 % Sodium Chloride 10 ML IVP SCH (12:00)
[2021-07-06] MEDS ORDERED: cefTRIAXone 2,000 MG in 0.9 % Sodium Chloride 20 ML IVP SCH (14:00)
[2021-07-07] MEDS: Cefepime HCl 2,000 MG in 0.9 % Sodium Chloride 10 ML IVP SCH ×3 (00:31→23:49)
[2021-07-07] MEDS: MetroNIDAZOLE 500 MG/100 ML 500 MG/100 ML BAG IVPB SCH ×3 (03:46→19:41)
[2021-07-07 05:06] LABS: Basophils % 0.1 %; Eosinophils % 0.3 %; Hematocrit 29.1 % (35.3-44.9); Hemoglobin 9.3 g/dL (11.5-15.4); Immature Granulocytes % 0.4 % (0-4); Lymphocytes # 1.1 K/mcL (0.6-4.6); Lymphocytes % 11.8 %; Mean Corpuscular Hemoglobin 33.3 pg (28.0-33.3); Mean Corpuscular Volume 104.3 fL (83.0-100.0); Mean Platelet Volume 9.7 fL (9.4-12.4); Monocytes # 0.9 K/mcL (0.0-1.3); Monocytes % 9.3 %; Neutrophils # 7.5 K/mcL (1.6-8.9); Platelet Count 245 K/mcL (140-400); Red Blood Count 2.79 M/mcL (3.82-4.97); Red Cell Distribution Width 14.1 % (11.5-14.5); Segmented Neutrophils % 78.1 %; White Blood Count 9.6 K/mcL (4.3-11.1)
[2021-07-07 05:27] LABS: BUN/Creatinine Ratio 17 (6-26); Blood Urea Nitrogen 15 mg/dL (8-23); Calcium 8.2 mg/dL (8.6-10.3); Carbon Dioxide 27 mEq/L (23-29); Chloride 102 mEq/L (98-107); Glucose 115 mg/dL (70-105); Magnesium 1.9 mg/dL (1.6-2.6); Osmolality,Calculated 280 (280-300); Phosphorous 2.8 mg/dL (2.7-4.5); Potassium 3.4 mEq/L (3.5-5.1); Sodium 134 mEq/L (136-145); eGFR For African Americans > 60 (> 60); eGFR For Non-African Americans > 60 (> 60)
[2021-07-07] MEDS: Aspirin Enteric Coated 81 MG Tablet PO SCH (08:42)
[2021-07-07] MEDS: Gabapentin 100 MG CAPSULE PO SCH ×3 (08:42→19:43)
[2021-07-07] MEDS: Folic Acid 1 MG TABLET PO SCH (08:42)
[2021-07-07] MEDS: Cholecalciferol (D-3) 1,000 UNIT (25MCG) TABLET PO SCH (08:42)
[2021-07-07] MEDS: amLODIPine 5 MG TABLET PO SCH (08:42)
[2021-07-07] MEDS: D5% in 0.9% NACL 1,000 ML IVC SCH ×2 (11:59→14:36)
[2021-07-08] MEDS: MetroNIDAZOLE 500 MG/100 ML 500 MG/100 ML BAG IVPB SCH ×3 (03:17→20:00)
[2021-07-08 05:21] LABS: Basophils % 0.3 %; Eosinophils # 0.2 K/mcL (0.0-0.6); Hemoglobin 9.3 g/dL (11.5-15.4); Immature Granulocytes % 0.3 % (0-4); Lymphocytes # 0.9 K/mcL (0.6-4.6); Lymphocytes % 11.8 %; Mean Corpuscular HGB Conc 32.1 g/dL (31.6-35.5); Mean Corpuscular Hemoglobin 33.8 pg (28.0-33.3); Mean Corpuscular Volume 105.5 fL (83.0-100.0); Mean Platelet Volume 9.7 fL (9.4-12.4); Monocytes # 0.9 K/mcL (0.0-1.3); Platelet Count 252 K/mcL (140-400); Red Blood Count 2.75 M/mcL (3.82-4.97); Red Cell Distribution Width 13.9 % (11.5-14.5); Segmented Neutrophils % 74.6 %
[2021-07-08 05:40] LABS: BUN/Creatinine Ratio 19 (6-26); Blood Urea Nitrogen 15 mg/dL (8-23); Calcium 8.3 mg/dL (8.6-10.3); Carbon Dioxide 26 mEq/L (23-29); Chloride 104 mEq/L (98-107); Glucose 146 mg/dL (70-105); Magnesium 1.8 mg/dL (1.6-2.6); Osmolality,Calculated 279 (280-300); Potassium 3.8 mEq/L (3.5-5.1); Sodium 133 mEq/L (136-145); eGFR For African Americans > 60 (> 60); eGFR For Non-African Americans > 60 (> 60)
[2021-07-08] MEDS: amLODIPine 5 MG TABLET PO SCH (09:26)
[2021-07-08] MEDS: Cholecalciferol (D-3) 1,000 UNIT (25MCG) TABLET PO SCH (09:27)
[2021-07-08] MEDS: Folic Acid 1 MG TABLET PO SCH (09:27)
[2021-07-08] MEDS: Aspirin Enteric Coated 81 MG Tablet PO SCH (09:27)
[2021-07-08] MEDS: Gabapentin 100 MG CAPSULE PO SCH (09:28)
[2021-07-08] MEDS ORDERED: *HR* Dextrose 50 % in Water (Syg) 50 ML SYRINGE IVP PRN (11:38)
[2021-07-08] MEDS ORDERED: Dextrose 4 GM Chewable Tablets PO PRN ×2 (11:38)
[2021-07-08] MEDS ORDERED: D5% in Water 1,000 ML IVC PRN (11:38)
[2021-07-08] MEDS: Cefepime HCl 2,000 MG in 0.9 % Sodium Chloride 10 ML IVP SCH ×2 (11:44→23:59)
[2021-07-08] MEDS: Insulin LISPRO 300 UNITS/3 ML VIAL SUBQ SCH ×4 (12:38→23:36)
[2021-07-09] MEDS: MetroNIDAZOLE 500 MG/100 ML 500 MG/100 ML BAG IVPB SCH ×3 (04:02→20:46)
[2021-07-09] MEDS: Insulin LISPRO 300 UNITS/3 ML VIAL SUBQ SCH ×5 (04:28→20:46)
[2021-07-09 05:05] LABS: BUN/Creatinine Ratio 23 (6-26); Blood Urea Nitrogen 17 mg/dL (8-23); Calcium 8.1 mg/dL (8.6-10.3); Carbon Dioxide 26 mEq/L (23-29); Chloride 103 mEq/L (98-107); Glucose 156 mg/dL (70-105); Magnesium 1.5 mg/dL (1.6-2.6); Osmolality,Calculated 283 (280-300); Phosphorous 1.6 mg/dL (2.7-4.5); Potassium 3.8 mEq/L (3.5-5.1); Sodium 134 mEq/L (136-145); eGFR For African Americans > 60 (> 60); eGFR For Non-African Americans > 60 (> 60)
[2021-07-09] MEDS ORDERED: amLODIPine 5 MG TABLET GTUBE SCH (09:00)
[2021-07-09] MEDS: Aspirin 81 MG TAB.CHEW GTUBE SCH (09:28)
[2021-07-09] MEDS: Pantoprazole 40 MG VIAL IVP SCH (09:29)
[2021-07-09] MEDS: Cefepime HCl 2,000 MG in 0.9 % Sodium Chloride 10 ML IVP SCH ×2 (11:29→23:42)
[2021-07-10] MEDS: Insulin LISPRO 300 UNITS/3 ML VIAL SUBQ SCH ×3 (00:08→09:51)
[2021-07-10 01:43] LABS: Basophils % 0.2 %; Eosinophils # 0.4 K/mcL (0.0-0.6); Eosinophils % 4.4 %; Hematocrit 30.2 % (35.3-44.9); Hemoglobin 9.6 g/dL (11.5-15.4); Immature Granulocytes % 0.5 % (0-4); Lymphocytes # 1.2 K/mcL (0.6-4.6); Lymphocytes % 14.1 %; Mean Corpuscular HGB Conc 31.8 g/dL (31.6-35.5); Mean Corpuscular Volume 103.8 fL (83.0-100.0); Mean Platelet Volume 9.6 fL (9.4-12.4); Monocytes # 0.9 K/mcL (0.0-1.3); Monocytes % 11.3 %; Neutrophils # 5.7 K/mcL (1.6-8.9); Platelet Count 318 K/mcL (140-400); Red Blood Count 2.91 M/mcL (3.82-4.97); Red Cell Distribution Width 13.9 % (11.5-14.5); Segmented Neutrophils % 69.5 %; White Blood Count 8.2 K/mcL (4.3-11.1)
[2021-07-10 01:57] LABS: BUN/Creatinine Ratio 25 (6-26); Blood Urea Nitrogen 17 mg/dL (8-23); Calcium 8.1 mg/dL (8.6-10.3); Carbon Dioxide 27 mEq/L (23-29); Chloride 103 mEq/L (98-107); Glucose 141 mg/dL (70-105); Magnesium 1.9 mg/dL (1.6-2.6); Osmolality,Calculated 284 (280-300); Phosphorous 1.7 mg/dL (2.7-4.5); Potassium 3.9 mEq/L (3.5-5.1); Sodium 135 mEq/L (136-145); eGFR For African Americans > 60 (> 60); eGFR For Non-African Americans > 60 (> 60)
[2021-07-10] MEDS: MetroNIDAZOLE 500 MG/100 ML 500 MG/100 ML BAG IVPB SCH (04:05)
[2021-07-10] MEDS: Pantoprazole 40 MG VIAL IVP SCH (09:47)
[2021-07-10] MEDS: Aspirin 81 MG TAB.CHEW GTUBE SCH (09:48)
[2021-07-10] MEDS: Morphine Sulfate 2 MG/ML SYRINGE IVP PRN ×2 (15:06→21:21)
[2021-07-11] MEDS: Morphine Sulfate 2 MG/ML SYRINGE IVP PRN (04:09)
[2021-07-11] MEDS: Pantoprazole 40 MG VIAL IVP SCH (07:31)
[2021-07-12] MEDS: Pantoprazole 40 MG VIAL IVP SCH (09:00)
[2021-07-12] MEDS: Morphine Sulfate 2 MG/ML SYRINGE IVP PRN (13:57)
[2021-07-12] MEDS: *HR* LORazepam Oral Conc 2 MG/ML SL PRN (16:10)
[2021-07-13] MEDS: *HR* LORazepam Oral Conc 2 MG/ML SL PRN ×3 (01:25→16:14)
[2021-07-14] MEDS: *HR* LORazepam Oral Conc 2 MG/ML SL PRN ×3 (08:06→21:11)
[2021-07-15] MEDS: *HR* LORazepam Oral Conc 2 MG/ML SL PRN ×6 (00:47→21:57)
[2021-07-15] MEDS: Atropine Sulfate 1% 40 DROP/2 ML BOTTLE SL PRN ×3 (09:01→21:57)
[2021-07-16] MEDS: *HR* LORazepam Oral Conc 2 MG/ML SL PRN ×8 (00:17→17:29)
[2021-07-16] MEDS ORDERED: Acetaminophen IV 500 MG/50 ML BAG IVPB ONE (10:00)
[2021-07-16 13:36] VITALS: BP 65/41; PULSE 103; O2SAT 65
[2021-07-16 19:02] VITALS: TEMP 100.2
== END 2021-07-16 19:56 | disposition expired | DRG 689 ==
LOC: 2ANU → SUATTDRO 20:58 → 2ANU 07-10 12:13
PROVIDERS: ADMIT Internal Medicine; ATTEND General Practice